=== PATIENT | female | born 2000 | race Caucasian/White ===

== ENCOUNTER 2020-09-18 10:22 | Outpatient (RCR) | payer OTHER, SELFPAY | END 2020-11-24 23:59 | LOC: IMMUN 10:22 | PROVIDERS: PCP Pediatrics; Visit Provider Family Medicine | DX: Z23 Encounter for immunization (principal) | CPT/HCPCS: 0001A; 0002A; 91300 ==

== ENCOUNTER 2021-07-16 09:54 | Emergency (ER) | payer OTHER, SELFPAY ==
[2021-07-16 09:55] VITALS: BP 131/74; PULSE 101; RESP 18; TEMP 36.6; O2SAT 100; BMI 23.0
--- NOTE | 2021-07-16 10:17 | EKG12_ITS ---
Test Reason : CHEST PAIN Blood Pressure : / mmHG Vent. Rate : 086 BPM Atrial Rate : 086 BPM P-R Int : 124 ms QRS Dur : 082 ms QT Int : 362 ms P-R-T Axes : 035 072 029 degrees QTc Int : 433 ms Normal sinus rhythm Low voltage QRS Borderline ECG Confirmed by ZAHRA HAMMER, BUFFY ([id number]), editor index VALENTINE FARAH ([id number]) on 07/19/2021 10:48:12 AM Referred By: TL Confirmed By:BUFFY SWEENEY MD
--- NOTE | 2021-07-16 10:18 | EDS_ITS ---
HPI History of Present Illness Chief Complaint: Chest Pain Informant: patient Narrative Narrative: referred in 26 weeks gestation after speaking with OB office for chest pains and dyspnea starting 4 days ago. Pain in the lower ribs. Pain with deep breath or laying down. Nonproductive cough for the past 2 days. States that subjective fevers chills headache. No vomiting or diarrhea. Home Covid test yesterday was negative. Vaccinated x 2, last doseApril of last year. Had COVID-19 in April 2020. No changes in taste or smell. No recent travel or immobilizations. No history of PE or DVT. Prior Similar Symptoms: No PFSH PFSH Home Medications [id number] [] 1 tab PO DAILY 07/16/21 [History Last Taken Unknown] Allergy/AdvReac Type Severity Reaction Status Date / Time No Known Allergies Allergy Verified 07/16/21 09:57 Social History Smoking Status: Never smoker ROS ROS ED Constitutional Constitutional ED: Reports chills; Denies fever(s) or sweats Eyes Eyes: Denies change in vision ENT ENT ED: Denies dysphagia or sore throat Cardiovascular Cardiovascular: Reports chest pain; Denies leg edema, palpitations or racing heartbeat Respiratory/Chest Respiratory/Chest: Reports cough and dyspnea; Denies dyspnea on exertion Gastrointestinal Gastrointestinal: Denies abdominal pain, diarrhea, nausea or vomiting Genitourinary Genitourinary ED: Denies dysuria, hematuria or urinary frequency Musculoskeletal Musculoskeletal: Denies back pain, extremity pain or neck pain Integumentary Denies rash or wounds Neurologic Neurologic: Reports headache(s); Denies paresthesias or weakness EXAM Physical Exam Const Vital Signs: 07/16/21 09:55 07/16/21 10:50 07/16/21 11:40 Temperature 98 F Temperature Source Temporal Pulse Rate 101 H 114 H Respiratory Rate 18 16 Respiratory Effort Normal Blood Pressure 131/74 H 127/80 H Blood Pressure Mean 93 95 Pulse Ox 100 99 Oxygen Delivery Method Room Air Room Air 07/16/21 12:55 Temperature Temperature Source Pulse Rate 90 Respiratory Rate 17 Respiratory Effort Blood Pressure 107/59 L Blood Pressure Mean Pulse Ox 100 Oxygen Delivery Method Positive well nourished and well developed General Appearance ED: well developed and NAD HEENT Reports moist mucous membranes normocephalic and atraumatic Eyes PERRL, EOMs intact bilaterally and conjunctivae normal General Eye ED: Yes normal appearance of both eyes Neck no lymphadenopathy and supple Neck Narrative: No meningismus General: Negative for tenderness Chest Wall Chest: Negative for tenderness Resp normal respiratory effort and normal air movement Effort and Inspection: symmetric chest movement; Negative for respiratory distress Cardio regular rate, regular rhythm and no murmurs Peripheral Pulses: pulses 2+ throughout GI normal to inspection, nondistended, normoactive bowel sounds and non-tender GI Narrative: Gravid abdomen Palpation: Negative for guarding or rebound tenderness present Back/Spine no CVA tenderness and no thoracic nor lumbar tenderness Extremity normal to inspection General Extremety ED: Negative for edema or tenderness General Extremity: Negative for edema Neuro oriented x3 and no sensory deficits noted Sensorium / Orientation: awake and alert Skin no rashes or lesions noted and no wounds MDM MDM MDM Narrative Medical decision making narrative: Patient vital signs stable, slight tachycardia and being . Reporting pleuritic symptoms. She is low risk Wells criteria. Discussed labs with D-dimer initially. However the D-dimer was elevated at 1.4. Risk and benefits were discussed with CT scan she is currently second trimester . CT scan results were negative. Discussed with patient using Tylenol monitoring symptoms. She had a PCR testing ordered, she was discharged with monitoring for symptoms. 2120: I checked patient's results noting a positive Covid PCR. Called the patient discussed the results with the patient. She will monitor for any worsening shortness of breath. She relates to her OB physician. Return precautions discussed. Patient is being discharged under pandemic conditions under declared global, national and state disaster activation, with limited medical resources. Patient and community understands this. Results discussed in layman's terms to the patient satisfaction. All questions answered in layman's terms. Patient understands importance of follow-up care as directed. Patient has been instructed to return to the ED immediately if new symptoms, problems, or questions occur. We mutually agree with the plan of disposition. The patient understand that they may call or return with any questions or concerns at any time. Lab Data Attestation: I reviewed the patient's lab results. Labs: Laboratory Results - last 24 hr 07/16/21 07/16/21 07/16/21 10:35 10:35 10:35 WBC 8.2 RBC 3.71 L Hgb 12.0 Hct 34.2 L MCV 92.2 MCH 32.3 H MCHC 35.1 RDW Std Deviation 42.4 RDW Coeff of [place] 12.6 Plt Count 189 MPV 9.2 Immature Gran % (Auto) 0.900 Neut % (Auto) 76.5 H Lymph % (Auto) 14.2 L [place] % (Auto) 7.4 Eos % (Auto) 0.5 Baso % (Auto) 0.5 Absolute Neuts (auto) 6.3 Absolute Lymphs (auto) 1.16 Nucleated RBC % 0 PT 12.1 INR 1.0 APTT 25.8 D-Dimer Quant (PE/DVT) 1.41 H* Sodium 139 Potassium 3.3 L Chloride 109 H Carbon Dioxide 25.0 Anion Gap 5 BUN 6 L Creatinine 0.58 Estim Creat Clear Calc 114.81 Est GFR (MDRD) Af Amer 166 Est GFR (MDRD) Non-Af 137 BUN/Creatinine Ratio 10.3 Glucose 75 Calcium 8.3 L COVID-19 (PETER) 07/16/21 10:42 WBC RBC Hgb Hct MCV MCH MCHC RDW Std Deviation RDW Coeff of Soledad Plt Count MPV Immature Gran % (Auto) Neut % (Auto) Lymph % (Auto) [place] % (Auto) Eos % (Auto) Baso % (Auto) Absolute Neuts (auto) Absolute Lymphs (auto) Nucleated RBC % PT INR APTT D-Dimer Quant (PE/DVT) Sodium Potassium Chloride Carbon Dioxide Anion Gap BUN Creatinine Estim Creat Clear Calc Est GFR (MDRD) Af Amer Est GFR (MDRD) Non-Af BUN/Creatinine Ratio Glucose Calcium COVID-19 (PETER) Detected Radiography Diagnostic Testing: Clinical Impression(s) from Imaging Studies Chest CTA 07/16/21 11:14 IMPRESSION: Normal CTA chest examination, without a demonstrated pulmonary embolism or arterial dissection. Electronically Signed: Enrrique Callaway MD at 11:56 EST , Discharge Plan Triage Chief Complaint: Chest Pain ED Provider: Dawit Charles Dx/Rx/DC Orders Clinical Impression: Chest pain, pleuritic, Second trimester , Viral syndrome, COVID-19 virus infection Instructions: ED Chest Pain, Uncertain Cause, ED Pleurisy Prescriptions: No Action 1 mg Tablet 1 tab PO DAILY RF: 0 Primary Care Provider: Care Physician,No Primary Referrals: Care Physician,No Primary [Primary Care Provider] - Activity Restrictions/Additional Instructions: CT scan of the chest negative for PE. Your Covid PCR is pending. Take Tylenol as needed. Follow-up with your OB doctor. Disposition Disposition: Home, Self Care Discharge Date/Time: 07/16/21 12:59
--- NOTE | 2021-07-16 10:32 | NURSING ---
NO OLD EKGS
[2021-07-16 10:52] LABS: Absolute Lymphocyte Count 1.16 X10^3/uL (0.83-4.51); Absolute Neutrophil Count 6.3 X10^3/uL (2.0-7.7); Basophil# 0.04 X10^3/uL; Basophil% 0.5 % (0-1); Eosinophil# 0.04 X10^3/uL; Eosinophils% 0.5 % (0-5); Hematocrit 34.2 % (37-47); Lymphocyte # 1.16 X10^3/ul (0.83-4.51); Lymphocyte % 14.2 % (19-41); Mean Corp Hgb Conc 35.1 g/dL (32-36); Mean Corpuscular Hgb 32.3 pg (27.0-32.0); Mean Corpuscular Volume 92.2 fL (81-99); Mean Platelet Vol. 9.2 fl (6.2-12.0); Monocyte# 0.61 X10^3/uL; Monocyte% 7.4 % (0-10); NRBC Flagged by Analyzer 0 % (0-5); Neutrophil # 6.27 X10^3/uL (2.7-7.7); Neutrophil % 76.5 % (47-70); Platelet Count 189 K/mm3 (150-450); RBC Distribution Width CV 12.6 % (11.6-14.6); RBC Distribution Width SD 42.4 fl (35.1-43.9); Red Blood Count 3.71 M/mm3 (4.2-5.4); White Blood Count 8.2 K/mm3 (4.4-11.0)
[2021-07-16 10:54] LABS: Prothrombin Time (Protime)PT. 12.1 SECONDS (11.7-14.9)
[2021-07-16 10:55] LABS: Partial Thromboplast Time 25.8 Seconds (24.1-36.2)
[2021-07-16 11:00] LABS: Anion Gap 5 (5-15); BUN 6 mg/dL (7-18); BUN/Creat Ratio 10.3 RATIO (10-20); Calcium,Total 8.3 mg/dL (8.5-10.1); Chloride 109 mmol/L (98-107); Creatinine, Serum 0.58 mg/dL (0.55-1.02); EST Glomerular Filtration Rate 137 mL/min (>60); Est Glom Filt Rate - Afr Amer 166 mL/min (>60); Estimated Creatinine Clearance 114.81 ml/min; Glucose 75 mg/dL (74-106); Potassium 3.3 mmol/L (3.5-5.1); Sodium Level 139 mmol/L (136-145)
[2021-07-16 11:07] LABS: D-Dimer Quantitative (DVT/PE) 1.41 FEU/ug/m (0.27-0.49)
--- NOTE | 2021-07-16 11:14 | CT_ITS ---
STUDY: CTA CHEST REASON FOR EXAM: Female, 20 years old. Shortness of breath -- elevated dimer, 26weeks RADIATION DOSAGE (If Supplied By Facility): CTDIvol = ( 4.92 ) mGy, DLP = ( 143.34 ) mGycm TECHNIQUE: The examination was performed with the intravenous administration of IV 100mL Isovue-370. Post-processing of the angiographic images was performed, with multiplanar reformation and 3D reconstruction. Individualized dose optimization techniques were used for this CT. COMPARISON: None. FINDINGS: Normal enhancement of the main pulmonary artery and right and left pulmonary arteries. Normal enhancement of the bilateral peripheral pulmonary arteries. There is no demonstrated pulmonary embolism. Normal thoracic aorta and visualized great vessels. There is no demonstrated aortic dissection. Normal heart and pericardium. Normal mediastinum. Normal hilar regions. Normal visualized trachea and bronchi. The lungs are well expanded. Normal pulmonary parenchyma. Normal pleura. Normal chest wall structures. Normal osseous structures. Normal visualized upper abdomen. CT/CTA Chest W/WO Contrast IMPRESSION: Normal CTA chest examination, without a demonstrated pulmonary embolism or arterial dissection. Electronically Signed: Enrrique Callaway MD at 11:56 EST ,
[2021-07-16 11:40] VITALS: BP 127/80; PULSE 114; RESP 16; O2SAT 99
[2021-07-16 12:55] VITALS: BP 107/59; PULSE 90; RESP 17; O2SAT 100
== END 2021-07-16 12:59 | disposition home or self-care (01) ==
PROVIDERS: Emergency Provider Emergency Medicine; Visit Provider Emergency Medicine
DX: O98.512 Other viral diseases complicating pregnancy, second trimester (principal); U07.1 COVID-19; O99.891 Other specified diseases and conditions complicating pregnancy; R09.1 Pleurisy; Z3A.26 26 weeks gestation of pregnancy
CPT/HCPCS: 71275; 80048; 85025; 85379; 85610; 85730; 87635; 93005; 99284; Q9967; A4216; U0003; U0005

== ENCOUNTER 2021-10-10 13:05 | Inpatient (IN) | payer OTHER, SELFPAY ==
[2021-10-10] VITALS (45 sets, daily range): BP systolic 109–136; BP diastolic 55–79; PULSE 67–99; RESP 18; TEMP 36.9–37.9; O2SAT 92–100; BMI 25.3
[2021-10-10] MEDS: Lactated Ringers 500 ML 999 ML IV ×2 (13:15→14:23)
--- NOTE | 2021-10-10 13:15 | PCM.HP.OB ---
HPI - General General Date of Admission: 10/10/21 HPI Narrative ANDREA GARDNER, is a 20 F at 38.4 weeks gestation who presents to triage with spontaneous contractions and leaking fluid since this morning. Positive movement. Denies any vaginal bleeding. uncomplicated. Patient has a history of HSV and anxiety. Taking Acyclovir PO since 36 weeks gestation. Maternal Data Information SHANE Calculator Estimated Delivery Date Method Current WG Current Estimate 10/20/21 Manual 38w 4d PFSH PFS Medical History (Updated 10/10/21 @ 14:56 by Marcela Tony CNM) Anxiety Genital herpes affecting Home Medications [id number] [] 1 tab PO DAILY 07/16/21 [History Last Taken 10/09/21] acyclovir 10/10/21 [History Last Taken 10/10/21] ferrous sulfate [iron] 325 mg PO DAILY 10/10/21 [History Last Taken Unknown] Allergy/AdvReac Type Severity Reaction Status Date / Time No Known Allergies Allergy Verified 10/10/21 13:18 Social History Smoking Status: Never smoker History Elective abortions Hx Para 0 Spontaneous abortions Hx # Term Pregnancies Ectopic pregnancies Hx # Pregnancies Multiple births # of living children NST FHR Rate Baby A Baseline: 130 Variability:: Moderate Accelerations:: 15 x 15 Decelerations:: None NST Reactive:: Yes FHR Category:: Category I Uterine Activity:: 1-3 minutes-palpate moderate and relaxed in between ROS Eyes Eyes: Denies blurry vision, change in vision or spots in vision ENT HEENT: Denies dizziness or headache(s) Cardiovascular Cardiovascular: Denies abdominal pain, chest pain or dyspnea Respiratory/Chest Respiratory/Chest: Denies cough, dyspnea, shortness of breath at rest or shortness of breath with exertion Gastrointestinal Gastrointestinal: Denies abdominal pain, diarrhea or vomiting Genitourinary Genitourinary: Denies change in urinary stream, difficulty urinating or dysuria Musculoskeletal Musculoskeletal: Reports none Integumentary Integumentary: Denies rash Neurologic Neurologic: Denies dizziness, headache(s), memory loss or weakness Psychiatric Psychiatric: Reports none Vital Signs Vital Signs Vital Signs: 10/10/21 13:44 10/10/21 13:46 10/10/21 13:50 Pulse Rate 99 85 85 Blood Pressure 126/71 H 127/75 H BP Systolic 126 127 BP Diastolic 71 75 Pulse Ox 97 92 10/10/21 13:54 10/10/21 13:55 10/10/21 13:59 Pulse Rate 75 76 80 Blood Pressure 129/75 H 123/64 H BP Systolic 129 123 BP Diastolic 75 64 Pulse Ox 100 100 10/10/21 14:04 10/10/21 14:05 10/10/21 14:09 Pulse Rate 75 74 Blood Pressure 125/66 H BP Systolic 125 BP Diastolic 66 Pulse Ox 100 100 10/10/21 14:11 10/10/21 14:14 10/10/21 14:15 Pulse Rate 69 90 Blood Pressure 133/60 H 109/55 L BP Systolic 133 109 BP Diastolic 60 55 Pulse Ox 100 10/10/21 14:19 10/10/21 14:21 Pulse Rate 78 79 Blood Pressure 115/61 BP Systolic 115 BP Diastolic 61 Pulse Ox 100 Weight Weight: 134 lb Body Mass Index (BMI) 25.3 Physical Exam Const alert, oriented x3 and no apparent distress General Appearance: cooperative Orientation / Consciousness: awake Exam Limitations: no limitations HEENT normocephalic Head and Scalp: normal to inspection Eyes General Eye: normal appearance of both eyes Neck full ROM and no lymphadenopathy Lymph Lymphatic: no lymphadenopathy noted Chest inspection of chest normal Resp normal respiratory effort, normal air movement and clear to auscultation bilaterally Effort and Inspection: able to speak in complete sentences and symmetric chest movement Cardio regular rate and regular rhythm GI normal to inspection, nondistended, normoactive bowel sounds Manual OB Exam: presentation cephalic, dilated 4, effaced 80 and station 0 Amniotic Fluid: clear amniotic fluid Back/Spine normal ROM Extremity full ROM and no calf tenderness Skin no rashes or lesions noted General Skin Exam: no breakdown Neuro oriented x3 and CN's II-XII intact bilaterally Psych mental status grossly normal and thought process normal Labs Labs Labs: Blood Type AB NEGATIVE Antibody Screen NEGATIVE Hct 37.8 % (37-47) Hgb 13.4 g/dL (12.0-15.0) Rubella immune HB neg HC neg HIV- NR GC/CH- neg GBS negative Assessment & Plan (1) Anxiety: COMMENT: Pt has done counseling in the past for anxiety. (2) 38 weeks gestation of : (3) Spontaneous rupture of amniotic membranes: (4) History of herpes genitalis: (5) Spontaneous onset of labor: PLAN: CE- /-1 Positive clear fluid Admit to labor and delivery Routine labs Start IV and run per orders Epidural when indicated Dr. Smith notified of admission and is collaborating physician
[2021-10-10 13:32] LABS: Absolute Lymphocyte Count 2.68 X10^3/uL (0.83-4.51); Absolute Neutrophil Count 5.2 X10^3/uL (2.0-7.7); Basophil# 0.04 X10^3/uL; Basophil% 0.5 % (0-1); Eosinophil# 0.12 X10^3/uL; Eosinophils% 1.4 % (0-5); Hematocrit 37.8 % (37-47); Hemoglobin 13.4 g/dL (12.0-15.0); Lymphocyte # 2.68 X10^3/ul (0.83-4.51); Lymphocyte % 30.8 % (19-41); Mean Corp Hgb Conc 35.4 g/dL (32-36); Mean Corpuscular Hgb 31.8 pg (27.0-32.0); Mean Corpuscular Volume 89.6 fL (81-99); Monocyte# 0.61 X10^3/uL; NRBC Flagged by Analyzer 0 % (0-5); Neutrophil % 59.7 % (47-70); Platelet Count 167 K/mm3 (150-450); RBC Distribution Width CV 12.2 % (11.6-14.6); RBC Distribution Width SD 39.7 fl (35.1-43.9); Red Blood Count 4.22 M/mm3 (4.2-5.4); White Blood Count 8.7 K/mm3 (4.4-11.0)
[2021-10-10] MEDS: Lactated Ringers 1,000 ML 200 ML IV (13:50)
[2021-10-10] MEDS: fentaNYL-bupivacaine (epidural) 100 ML BAG EPIDURAL (14:05)
[2021-10-10] MEDS: Oxytocin 30 units/NS 500 ml 30 UNITS/500 ML IV.SOLN 334 UNITS IV (16:45)
--- NOTE | 2021-10-10 17:11 | EX.PCM.OBRPT ---
Assessment & Plan (1) (spontaneous vaginal delivery): (2) Perineal laceration, second degree, delivered: (3) Rh negative status during : Maternal Data Information SHANE Calculator Estimated Delivery Date Method Current WG Current Estimate 10/20/21 Manual 38w 4d Vaginal Delivery Maternal Presentation Maternal Presentation: Spontaneous Rupture of Membranes Maternal Presentation: Patient is a at 38.4 that presented in spontaneous labor with spontaneous rupture of membranes for clear fluid. Operative Information Date of Procedure: 10/10/21 Pre-Operative Diagnosis: Term gestation, spontaneous labor Post-Operative Diagnosis: Same, live female Surgery / Procedure Performed: Spontaneous Vaginal Delivery Type of Anesthesia: Epidural Drain: [place] to straight drain Estimated Blood Loss: 250 Time of Delivery: 16:42 Findings Description of Procedure: Patient feeling pressure. Complete dilation and +1 station. Provided support during pushing. Minimal maternal effort delivered infant head in SHAR position followed immediately by shoulders and remainder of body. Vigorous female placed on maternal abdomen and attended to by nursing staff. IV Pitocin started for active management of the third stage of labor. 3 vessel cord clamped and cut by FOB after delay. Infant placed skin to skin with patient. Second degree laceration repaired with using 3-0 Vicryl Rapid in usual fashion. Hemostasis obtained. Fundus firm 2 below U. EBL 250 cc. Apgars 9/9. Patient and infant bonding well at this time. Dr. Smith notified of delivery Presentation: Vertex Amniotic Membrane Rupture Type: Spontaneous Time of Membrane Rupture: 1030 Amniotic Fluid Description: Clear Placental Delivery Description: Spontaneous Placenta Disposition: [facility] Cord Vessel Description: 3 Vessels Cord Entanglement: None A Gender: Female (1 minute): 9 (5 minute): 9 Delayed Cord Clamping: Yes Post Vaginal Delivery Medications Given After Delivery: IV Pitocin Episiotomy Description: None Laceration: 2nd degree Complication Complications: None
[2021-10-10] MEDS: Naproxen 500 MG Tablet PO (19:20)
[2021-10-10] MEDS: Acetaminophen 500 MG Tablet 1000 MG PO (20:52)
[2021-10-11] VITALS (9 sets, daily range): BP systolic 113–133; BP diastolic 58–87; PULSE 65–88; RESP 16–18; TEMP 36.6–37.6
[2021-10-11] MEDS: Naproxen 500 MG Tablet PO (05:00)
[2021-10-11] MEDS: Senna/Docusate Sodium 1 Tablet PO ×2 (05:00→12:45)
[2021-10-11] MEDS: Acetaminophen 500 MG Tablet 1000 MG PO (08:19)
--- NOTE | 2021-10-11 08:53 | PN.OBGYN_ITS ---
Subjective Subjective Doing well per patient and nursing staff. Ambulating and taking PO without difficulty. Voiding and passing flatus. Pain controlled. , services for assistance. Denies headache, visual changes, chest pain, shortness of breath, leg pain or increased bleeding. Lochia normal. Objective Data Objective Data Vital Signs: Vital Signs Temp Pulse Resp BP Pulse Ox 99.7 F H 73 16 125/70 H 99 10/11/21 08:10 10/11/21 08:10 10/11/21 08:10 10/11/21 08:10 10/10/21 15:55 Oxygen Delivery Method Room Air Weight: 134 lb Body Mass Index (BMI) 25.3 Intake & Output: Intake and Output for Last 24 Hours 10/09/21 10/10/21 10/11/21 23:59 23:59 23:59 Intake Total 3099.84 / 3099.84 Output Total 500 / 500 800 / 800 Balance 2599.84 / 2599.84 -800 / -800 Lab / Micro Data Result Diagrams: 10/10/21 13:15 Labs: Laboratory Results - last 24 hr 10/10/21 13:15: WBC 8.7, RBC 4.22, Hgb 13.4, Hct 37.8, MCV 89.6, MCH 31.8, MCHC 35.4, RDW Std Deviation 39.7, RDW Coeff of Soledad 12.2, Plt Count 167, MPV 11.0, Immature Gran % (Auto) 0.600, Neut % (Auto) 59.7, Lymph % (Auto) 30.8, [place] % (Auto) 7.0, Eos % (Auto) 1.4, Baso % (Auto) 0.5, Absolute Neuts (auto) 5.2, Absolute Lymphs (auto) 2.68, Nucleated RBC % 0 10/10/21 13:15: Blood Type AB NEGATIVE, Antibody Screen NEGATIVE ROS Constitutional Constitutional: Reports systems reviewed and no addt'l complaints, except as documented; Denies headache(s) Eyes Eyes: Denies acute decrease in peripheral vision, blurry vision or change in vision ENT HEENT: Reports systems reviewed and no addt'l complaints, except as documented Cardiovascular Cardiovascular: Denies chest pain or dizziness Respiratory/Chest Respiratory/Chest: Denies cough, dyspnea, dyspnea on exertion, shortness of breath at rest or shortness of breath with exertion Gastrointestinal Gastrointestinal: Denies abdominal pain, diarrhea, nausea or vomiting Genitourinary Genitourinary: Denies abdominal discomfort Musculoskeletal Musculoskeletal: Denies limited range of motion Integumentary Integumentary: Reports systems reviewed and no addt'l complaints, except as documented Neurologic Neurologic: Reports systems reviewed and no addt'l complaints, except as documented Psychiatric Psychiatric: Reports systems reviewed and no addt'l complaints, except as documented Endocrine Endocrinology: Reports systems reviewed and no addt'l complaints, except as documented Hematologic/Lymphatic Hematologic/Lymphatic: Reports systems reviewed and no addt'l complaints, except as documented Allergic/Immunologic Allergic/Immunologic: Reports systems reviewed and no addt'l complaints, except as documented Physical Exam Const alert and oriented x3 General Appearance: cooperative Orientation / Consciousness: awake, oriented to person, oriented to place and oriented to time Exam Limitations: no limitations HEENT normocephalic Head and Scalp: normal to inspection, normocephalic and atraumatic Face and Sinus: normal facial exam Eyes General Eye: normal appearance of both eyes Neck full ROM Chest Chest: symmetrical chest wall rise Resp normal respiratory effort and normal air movement Auscultation: clear to auscultation bilaterally Cardio regular rate, regular rhythm, S1 normal heart sound, S2 normal heart sound, no murmurs, no rub, no gallops and no clicks GI normal to inspection, nondistended, normoactive bowel sounds and non-tender appearance of the vagina normal Bladder / Kidney Exam: no CVA tenderness Back/Spine normal ROM Extremity normal to inspection and full ROM Skin no rashes or lesions noted Neuro oriented x3, CN's II-XII intact bilaterally and moves all extremities Sensorium / Orientation: awake, alert and oriented to person Motor Exam: clonus absent Deep Tendon Reflexes: Rt Patellar (L4): 2+ and Lt Patellar (L4): 2+ Assessment & Plan (1) Rh negative status during : (2) Perineal laceration, second degree, delivered: (3) (spontaneous vaginal delivery): PLAN: 1) Routine PP care 2) services 3) Naproxen for pain 4) follow up at 2 weeks and 6 week PP 5) D/C home today
--- NOTE | 2021-10-11 08:53 | DS.PCM_ITS ---
Providers Date of Admission: 10/10/21 Primary Care Physician: Paula Primary Care Phys Reason For Visit: VAG DELIVERY Diagnosis Discharge Diagnosis (1) (spontaneous vaginal delivery): Status: Acute Code(s): O80 - Encounter for full-term uncomplicated delivery (2) Perineal laceration, second degree, delivered: Status: Acute Code(s): O70.1 - Second degree perineal laceration during delivery (3) Rh negative status during : Status: Acute Code(s): O26.899 - Other specified related conditions, unspecified trimester; Z67.91 - Unspecified blood type, Rh negative Medications at Discharge Home Medications [id number] 1 tab PO DAILY 07/16/21 acyclovir 10/10/21 acetaminophen 1,000 mg PO Q6H PRN PRN #0 tab 10/11/21 naproxen 500 mg PO Q8H PRN PRN #30 tab 10/11/21 Weight / BMI Weight Weight: 134 lb Body Mass Index (BMI) 25.3 ABG / Lab / Microbiology Data Result Diagrams: 10/10/21 13:15 Laboratory: Laboratory Results - last 24 hr 10/10/21 13:15: WBC 8.7, RBC 4.22, Hgb 13.4, Hct 37.8, MCV 89.6, MCH 31.8, MCHC 35.4, RDW Std Deviation 39.7, RDW Coeff of [place] 12.2, Plt Count 167, MPV 11.0, Immature Gran % (Auto) 0.600, Neut % (Auto) 59.7, Lymph % (Auto) 30.8, [place] % (Auto) 7.0, Eos % (Auto) 1.4, Baso % (Auto) 0.5, Absolute Neuts (auto) 5.2, Absolute Lymphs (auto) 2.68, Nucleated RBC % 0 10/10/21 13:15: Blood Type AB NEGATIVE, Antibody Screen NEGATIVE Meaningful Use Info Meaningful Use Diagnoses (Choose all that apply): None applicable Discharge Plan Admission Admit Date/Time: 10/10/21 13:05 Primary Reason for Your Visit: Attending Provider: Marcela Tony Primary Care Provider: Care Physician,No Primary Instructions Patient Instructions: Discharge Orders/Prescriptions Prescriptions: New acetaminophen 500 mg Tablet 1,000 mg PO Q6H PRN PRN (Reason: Pain 1-10 Or Fever) Qty: 0 RF: 0 naproxen 500 mg Tablet 500 mg PO Q8H PRN PRN (Reason: Pain Score 1-3) Qty: 30 RF: 0 Continued [id number] 1 mg Tablet 1 tab PO DAILY RF: 0 acyclovir 400 mg tablet RF: 0 Discontinued ferrous sulfate [iron] 325 mg (65 mg iron) Tablet 325 mg PO DAILY RF: 0 Referrals / Follow Up: Marcela Tony CNM [Certified Nurse Street Flusher Driver] - (Follow up with virtual visit in 2 weeks and 6 weeks PP) Care Physician,No Primary [Primary Care Provider] - Disposition Disposition (needs filled in before D/C Order can be placed): Home, Self Care
== END 2021-10-11 19:00 | disposition home or self-care (01) | DRG 806 ==
LOC: WPOUT 13:09 → WP 13:09
PROVIDERS: Admitting Provider Advanced Practice Midwife; Visit Provider Advanced Practice Midwife
DX: O42.02 Full-term premature rupture of membranes, onset of labor within 24 hours of rupture (principal); Z37.0 Single live birth; O98.32 Other infections with a predominantly sexual mode of transmission complicating childbirth; F41.9 Anxiety disorder, unspecified; A60.00 Herpesviral infection of urogenital system, unspecified; O26.893 Other specified pregnancy related conditions, third trimester; Z67.31 Type AB blood, Rh negative; O99.344 Other mental disorders complicating childbirth; Z3A.38 38 weeks gestation of pregnancy; O70.1 Second degree perineal laceration during delivery
CPT/HCPCS: 59050; 85025; 86850; 86900; 86901; 99218; 99406; J7120; G0378

== ENCOUNTER → 2022-04-13 | Outpatient (CLI) | payer OTHER, SELFPAY ==
[2022-04-13 12:00] LABS: Absolute Lymphocyte Count 1.55 X10^3/uL (0.83-4.51); Absolute Neutrophil Count 3.2 X10^3/uL (2.0-7.7); Basophil# 0.02 X10^3/uL; Basophil% 0.4 % (0-1); Eosinophil# 0.07 X10^3/uL; Eosinophils% 1.3 % (0-5); Hemoglobin 14.5 g/dL (12.0-15.0); Lymphocyte # 1.55 X10^3/ul (0.83-4.51); Lymphocyte % 29.4 % (19-41); Mean Corp Hgb Conc 33.7 g/dL (32-36); Mean Corpuscular Volume 88.8 fL (81-99); Mean Platelet Vol. 9.6 fl (6.2-12.0); Monocyte# 0.41 X10^3/uL; Monocyte% 7.8 % (0-10); NRBC Flagged by Analyzer 0 % (0-5); Neutrophil # 3.21 X10^3/uL (2.7-7.7); Neutrophil % 60.7 % (47-70); Platelet Count 251 K/mm3 (150-450); RBC Distribution Width CV 11.6 % (11.6-14.6); RBC Distribution Width SD 37.1 fl (35.1-43.9); Red Blood Count 4.84 M/mm3 (4.2-5.4); White Blood Count 5.3 K/mm3 (4.4-11.0)
[2022-04-13 12:26] LABS: AST(SGOT) 19 U/L (15-37); Alanine Aminotransfer ALT/SGPT 19 U/L (13-56); Albumin, Serum 3.5 g/dL (3.2-5.0); Alkaline Phosphatase 53 U/L (45-117); Anion Gap 6 (5-15); BUN 11 mg/dL (7-18); BUN/Creat Ratio 14.2 RATIO (10-20); Bilirubin, Direct 0.09 mg/dL (0.00-0.30); Calcium,Total 8.5 mg/dL (8.5-10.1); Chloride 103 mmol/L (98-107); Cholesterol 155 mg/dL (200); Creatinine, Serum 0.78 mg/dL (0.55-1.02); EST Glomerular Filtration Rate 98 mL/min (>60); Est Glom Filt Rate - Afr Amer 118 mL/min (>60); Globulin 3.4 g/dL (2.2-4.2); Glucose 103 mg/dL (74-106); High Density Lipoprotein 49 mg/dL; Potassium 3.9 mmol/L (3.5-5.1); Protein, Total 6.9 g/dL (6.4-8.2); Sodium Level 137 mmol/L (136-145); Thyroid Stim Hormone (TSH) 0.73 uIU/mL (0.358-3.74); Triglycerides 153 mg/dL; Very Low Density Lipoprotein 31 mg/dL (5-40)
== END | disposition home or self-care (01) ==
LOC: MTLAB 10:45
PROVIDERS: PCP Family Medicine; Referring Provider Dermatology; Visit Provider Dermatology
DX: L70.0 Acne vulgaris (principal); Z79.899 Other long term (current) drug therapy
CPT/HCPCS: 80053; 80061; 82248; 84443; 85025

== ENCOUNTER → 2022-05-18 | Outpatient (CLI) | payer OTHER, SELFPAY ==
[2022-05-20 20:07] LABS: QNTFERON TB Mitogen Value > 10.00 IU/mL (.); QNTFERON TB Nil Value 0.07 IU/mL (.); QNTFERON TB1+ Ag Value 0.07 IU/mL (.); QNTFERON TB2+ Ag Value 0.06 IU/mL (.)
[2022-05-20 20:32] LABS: QNTIFERON TB Positive Criteria Negative (Negative)
== END | disposition home or self-care (01) ==
LOC: MFPLAB 11:21
PROVIDERS: PCP Family Medicine; Visit Provider Family Medicine
DX: Z11.1 Encounter for screening for respiratory tuberculosis (principal)
CPT/HCPCS: 36415; 86480

== ENCOUNTER → 2022-06-24 | Outpatient (CLI) | payer OTHER, SELFPAY ==
[2022-06-24 12:25] LABS: Absolute Lymphocyte Count 2.05 X10^3/uL (0.83-4.51); Basophil# 0.02 X10^3/uL; Basophil% 0.5 % (0-1); Eosinophil# 0.08 X10^3/uL; Eosinophils% 1.8 % (0-5); Hematocrit 43.6 % (37-47); Hemoglobin 14.4 g/dL (12.0-15.0); Lymphocyte # 2.05 X10^3/ul (0.83-4.51); Lymphocyte % 46.3 % (19-41); Mean Corpuscular Hgb 29.9 pg (27.0-32.0); Mean Corpuscular Volume 90.5 fL (81-99); Mean Platelet Vol. 10.1 fl (6.2-12.0); Monocyte# 0.31 X10^3/uL; NRBC Flagged by Analyzer 0 % (0-5); Neutrophil # 1.96 X10^3/uL (2.7-7.7); Neutrophil % 44.2 % (47-70); Platelet Count 269 K/mm3 (150-450); RBC Distribution Width CV 11.5 % (11.6-14.6); RBC Distribution Width SD 37.9 fl (35.1-43.9); Red Blood Count 4.82 M/mm3 (4.2-5.4); White Blood Count 4.4 K/mm3 (4.4-11.0)
[2022-06-24 12:48] LABS: AST(SGOT) 21 U/L (15-37); Alanine Aminotransfer ALT/SGPT 18 U/L (13-56); Cholesterol 173 mg/dL (200); High Density Lipoprotein 41 mg/dL; Triglycerides 111 mg/dL; Very Low Density Lipoprotein 22 mg/dL (5-40)
== END | disposition home or self-care (01) ==
LOC: MTLAB 09:14
PROVIDERS: PCP Family Medicine; Referring Provider Dermatology; Visit Provider Dermatology
DX: L21.8 Other seborrheic dermatitis (principal); K70.0 Alcoholic fatty liver; Z79.899 Other long term (current) drug therapy
CPT/HCPCS: 36415; 80061; 84450; 84460; 85025

== ENCOUNTER 2022-09-24 19:49 | Observation (INO) | payer OTHER, BC, SELFPAY ==
[2022-09-24 19:50] VITALS: BP 144/103; PULSE 114; RESP 18; TEMP 37.1; O2SAT 99; BMI 20.8
[2022-09-24 20:08] VITALS: BP 90/51; PULSE 92; RESP 20; O2SAT 98
[2022-09-24 20:14] VITALS: BP 117/76; PULSE 91; RESP 18; O2SAT 98
[2022-09-24 20:30] LABS: Absolute Lymphocyte Count 3.06 X10^3/uL (0.83-4.51); Absolute Neutrophil Count 2.2 X10^3/uL (2.0-7.7); Basophil# 0.03 X10^3/uL; Basophil% 0.5 % (0-1); Eosinophil# 0.05 X10^3/uL; Eosinophils% 0.9 % (0-5); Hemoglobin 15.5 g/dL (12.0-15.0); Lymphocyte # 3.06 X10^3/ul (0.83-4.51); Lymphocyte % 52.7 % (19-41); Mean Corp Hgb Conc 34.4 g/dL (32-36); Mean Corpuscular Hgb 30.4 pg (27.0-32.0); Mean Corpuscular Volume 88.2 fL (81-99); Mean Platelet Vol. 9.5 fl (6.2-12.0); Monocyte# 0.47 X10^3/uL; Monocyte% 8.1 % (0-10); NRBC Flagged by Analyzer 0 % (0-5); Neutrophil # 2.19 X10^3/uL (2.7-7.7); Neutrophil % 37.6 % (47-70); Platelet Count 278 K/mm3 (150-450); RBC Distribution Width CV 11.8 % (11.6-14.6); RBC Distribution Width SD 38.2 fl (35.1-43.9); White Blood Count 5.8 K/mm3 (4.4-11.0)
[2022-09-24 20:48] LABS: Internal QC Validated? YES +Cl - CLEAR BKGD; Pregnancy, Serum, hCG Quali. NEGATIVE Negative
[2022-09-24 20:50] LABS: Anion Gap 7 (5-15); BUN 11 mg/dL (7-18); Calcium,Total 9.6 mg/dL (8.5-10.1); Chloride 104 mmol/L (98-107); Creatinine, Serum 0.84 mg/dL (0.55-1.02); EST Glomerular Filtration Rate 88 mL/min (>60); Est Glom Filt Rate - Afr Amer 107 mL/min (>60); Glucose 103 mg/dL (74-106); Potassium 4.1 mmol/L (3.5-5.1); Sodium Level 137 mmol/L (136-145)
[2022-09-24 21:00] VITALS: BP 128/90; PULSE 98; RESP 18; O2SAT 97
[2022-09-24 21:24] LABS: Amphetamine Urine VISTA NEGATIVE (<1000 ng/mL); Barbiturate Urine VISTA NEGATIVE (< 200 ng/mL); Benzodiazepine Urine VISTA NEGATIVE (< 200 ng/mL); Cocaine Urine VISTA NEGATIVE (< 300 ng/mL); Ecstacy Urine VISTA NEGATIVE (< 500 ng/mL); Methadone Urine VISTA NEGATIVE (< 300 ng/mL); PCP Urine VISTA NEGATIVE (< 25 ng/mL); THC Urine VISTA NEGATIVE (< 50 ng/mL); Vista UDS pH Range 7
[2022-09-24 22:28] LABS: Acetaminophen (Tylenol) Level 107.4 ug/mL (10.0-30.0); Alcohol, Blood (Medical)-Serum < 3.0 mg/dL; Salicylate < 1.7 mg/dL (2.8-20.0)
[2022-09-24 23:15] VITALS: BP 105/70; PULSE 87; RESP 18; O2SAT 98
[2022-09-24 23:45] LABS: Acetaminophen (Tylenol) Level 258.6 ug/mL (10.0-30.0)
--- NOTE | 2022-09-24 23:52 | EX.ED.VIS.PS ---
HPI HPI - Psych History of Present Illness Chief Complaint: Suicidal Detail of Chief Complaint: Ingestion Informant: patient Narrative Narrative: Patient presents after taking approximate 20 tabs of Tylenol, 500 mg each at 7 PM this evening. She is tearful at this time. When I asked her why she took the medication she states I do not know. When I specifically asked her if she was trying to hurt herself she states yes. She states she has had thoughts of hurting herself in the past but has never attempted. PFSH PFSH Medical History Anxiety Genital herpes affecting Home Medications [id number] 1 mg tablet 1 tab PO DAILY 07/16/21 [History Last Taken 10/09/21] acyclovir 400 mg tablet genital herpes 10/10/21 [History Last Taken 10/10/21] acetaminophen 500 mg tablet 1,000 mg PO Q6H PRN PRN Pain 1-10 Or Fever #0 tabs 10/11/21 [Rx Last Taken Unknown] naproxen 500 mg tablet 500 mg PO Q8H PRN PRN Pain Score 1-3 #30 tabs 10/11/21 [Rx Last Taken Unknown] Allergy/AdvReac Type Severity Reaction Status Date / Time No Known Allergies Allergy Verified 09/24/22 19:50 Social History Smoking Status: Current every day smoker tobacco type: e-cigarettes ROS ROS ED Constitutional Constitutional ED: Denies chills or fever(s) Eyes Eyes: Denies change in vision or discharge from eye(s) ENT ENT ED: Denies discharge from eye(s), rhinorrhea or sore throat Cardiovascular Cardiovascular: Denies chest pain or palpitations Respiratory/Chest Respiratory/Chest: Denies cough or dyspnea Gastrointestinal Gastrointestinal: Denies abdominal pain, nausea or vomiting Genitourinary Genitourinary ED: Denies dysuria Musculoskeletal Musculoskeletal: Denies back pain or extremity pain Integumentary Denies Abrasions or rash Neurologic Neurologic: Denies headache(s) or weakness Psychiatric Psychiatric: Reports anxiety, depression and suicidal ideation Allergic/Immunologic Allergic/Immunologic ED: Denies lip swelling or urticaria EXAM Physical Exam Const Vital Signs: 09/24/22 19:50 09/24/22 20:08 09/24/22 20:14 Temperature 98.7 F Temperature Source Temporal Pulse Rate 114 H 92 91 Respiratory Rate 18 20 H 18 Blood Pressure 144/103 H 90/51 L 117/76 Blood Pressure Mean 116 64 89 Pulse Ox 99 98 98 Oxygen Delivery Method Room Air Room Air Room Air 09/24/22 21:00 09/24/22 23:15 Temperature Temperature Source Pulse Rate 98 87 Respiratory Rate 18 18 Blood Pressure 128/90 H 105/70 Blood Pressure Mean 102 81 Pulse Ox 97 98 Oxygen Delivery Method Room Air Room Air Positive well nourished and well developed General Appearance ED: well developed HEENT Reports normocephalic and head/scalp atraumatic Eyes PERRL and EOMs intact bilaterally Neck supple Chest Wall inspection of chest normal and palpation of chest normal Resp normal respiratory effort and clear to auscultation bilaterally Cardio regular rate and regular rhythm GI non-tender Auscultation: hypoactive bowel sounds Palpation: soft Extremity normal to inspection Neuro oriented x3 and no sensory deficits noted Sensorium / Orientation: alert Motor Exam: strength 5/5 throughout Psych mental status grossly normal Appearance: well kempt Mood & Affect: sad and tearful Skin no rashes or lesions noted MDM MDM MDM Narrative Medical decision making narrative: Labs for psychiatric clearance undertaken. Patient was seen 2 hours after ingestion so therefore charcoal was not initiated. A 4-hour Tylenol level was ordered. Lab Data Labs: Laboratory Results - last 24 hr 09/24/22 09/24/22 09/24/22 20:12 20:12 20:12 WBC 5.8 RBC 5.10 Hgb 15.5 H Hct 45.0 MCV 88.2 MCH 30.4 MCHC 34.4 RDW Std Deviation 38.2 RDW Coeff of Soledad 11.8 Plt Count 278 MPV 9.5 Immature Gran % (Auto) 0.200 Neut % (Auto) 37.6 L Lymph % (Auto) 52.7 H Walker % (Auto) 8.1 Eos % (Auto) 0.9 Baso % (Auto) 0.5 Absolute Neuts (auto) 2.2 Absolute Lymphs (auto) 3.06 Nucleated RBC % 0 Sodium 137 Potassium 4.1 Chloride 104 Carbon Dioxide 26.0 Anion Gap 7 BUN 11 Creatinine 0.84 Estim Creat Clear Calc 78.60 Est GFR (MDRD) Af Amer 107 Est GFR (MDRD) Non-Af 88 BUN/Creatinine Ratio 13.0 Glucose 103 Calcium 9.6 Serum , Qual Salicylates < 1.7 L Urine Opiates Screen Urine Methadone Screen Acetaminophen 107.4 H* Ur Barbiturates Screen Ur Phencyclidine Scrn Ur Amphetamines Screen MDMA (Ecstasy) Screen U Benzodiazepines Scrn Urine Cocaine Screen U Cannabinoids Screen Ur Drug Screen Comment Ethyl Alcohol < 3.0 09/24/22 09/24/22 09/24/22 20:12 20:50 23:06 WBC RBC Hgb Hct MCV MCH MCHC RDW Std Deviation RDW Coeff of Soledad Plt Count MPV Immature Gran % (Auto) Neut % (Auto) Lymph % (Auto) [place] % (Auto) Eos % (Auto) Baso % (Auto) Absolute Neuts (auto) Absolute Lymphs (auto) Nucleated RBC % Sodium Potassium Chloride Carbon Dioxide Anion Gap BUN Creatinine Estim Creat Clear Calc Est GFR (MDRD) Af Amer Est GFR (MDRD) Non-Af BUN/Creatinine Ratio Glucose Calcium Serum , Qual NEGATIVE Salicylates Urine Opiates Screen NEGATIVE Urine Methadone Screen NEGATIVE Acetaminophen 258.6 H* Ur Barbiturates Screen NEGATIVE Ur Phencyclidine Scrn NEGATIVE Ur Amphetamines Screen NEGATIVE MDMA (Ecstasy) Screen NEGATIVE U Benzodiazepines Scrn NEGATIVE Urine Cocaine Screen NEGATIVE U Cannabinoids Screen NEGATIVE Ur Drug Screen Comment Ethyl Alcohol Treatment and Re-Evaluation Narrative: CBC reveals normal white count. Hemoglobin concentrated at 15.5. Chemistry studies are unremarkable. Salicylate level is less than 1.7. EtOH is less than 3. Initial Tylenol level initiated by nursing protocol was 107, however this is not a 4-hour draw. The 4-hour Tylenol level returns at 258. Her test is negative. Her urine tox screen is negative. At this time patient does require acetylcysteine treatment and this will be initiated. I will speak with hospitalist regarding admission for further treatment. Discharge Plan Triage Chief Complaint: Suicidal ED Provider: Indira Kraus Dx/Rx/DC Orders Clinical Impression: Tylenol overdose, Suicide attempt Prescriptions: No Action [id number] 1 mg Tablet 1 tab PO DAILY acyclovir 400 mg tablet Label Comments: take 1 tablet by mouth three times a day acetaminophen 500 mg Tablet 1,000 mg PO Q6H PRN PRN (Reason: Pain 1-10 Or Fever) Qty: 0 0RF naproxen 500 mg Tablet 500 mg PO Q8H PRN PRN (Reason: Pain Score 1-3) Qty: 30 0RF Primary Care Provider: Lisa Sin Referrals: Lisa Sin, [Primary Care Provider] - Disposition Disposition: Acute Care Hospital [facility], [place]
[2022-09-25] VITALS (29 sets, daily range): BP systolic 104–153; BP diastolic 48–128; PULSE 66–114; RESP 13–22; TEMP 36.2–37.3; O2SAT 98–100; BMI 20.4
[2022-09-25 00:22] LABS: AST(SGOT) 29 U/L (15-37); Alanine Aminotransfer ALT/SGPT 24 U/L (13-56); Albumin, Serum 4.2 g/dL (3.2-5.0); Alkaline Phosphatase 69 U/L (45-117); Bilirubin, Direct 0.09 mg/dL (0.00-0.30); Globulin 4.4 g/dL (2.2-4.2); Protein, Total 8.6 g/dL (6.4-8.2)
--- NOTE | 2022-09-25 00:26 | PCM.HP.STD ---
HPI - General General Date of Admission: 09/25/22 Date of Service: 09/25/22 Chief Complaint: Suicidal HPI Narrative ANDREA GARDNER, is a 21 F who presented to the emergency department after a suicide attempt. Patient states she took approximately 20 tablets of 500 mg Tylenol tablets at about 7 PM this evening. She states she has had some issues with depression ever since she had her baby about 1 year ago. She states she is just not been herself since that time. She feels safe at home and feels supportive. She has had thoughts of hurting herself in the past but never has had any attempts. When I did ask her if she was trying to hurt herself she stated yes. She states in general she has been feeling very overwhelmed. Vital signs on presentation show a temperature of 98.7, initial heart rate was 114 however subsequent heart rates were between 80 and 90. Blood pressure was 144/103, respiratory rate 18 and oxygen saturations were 99% on room air. CBC is unremarkable other than a mildly elevated hemoglobin at 15.5. Chemistry panel is unremarkable. Liver function is normal. Coags are pending. test was negative. Initial Tylenol level about 1 hour after ingestion was 107.4 and Tylenol level at 5 hours after ingestion was 258.6 putting her on the nomogram at risk for hepatic toxicity. In the emergency department she was initiated on N-acetylcysteine and request for admission was made. We signed a pink slip prior to admission. [facility] Medical History Anxiety Genital herpes affecting Home Medications drospirenone 3 mg-ethinyl estradiol 0.02 mg tablet 1 tab PO DAILY prevention 09/25/22 [History Last Taken Unknown] Allergy/AdvReac Type Severity Reaction Status Date / Time No Known Allergies Allergy Verified 09/24/22 19:50 no significant family history no surgical history Social History (Updated 09/25/22 @ 00:[address] Georgia Monique DO) Smoking Status: Current every day smoker tobacco type: e-cigarettes alcohol intake: never substance use type: does not use ROS Constitutional Constitutional: Reports anorexia; Denies change in weight, chills, fatigue, fever(s), malaise, night sweats, weakness or other Eyes Eyes: Denies blurry vision, change in eye color, change in vision, discharge from eye(s), double vision, erythema, eye pain, loss of vision or other ENT HEENT: Denies abnormal hearing, dysphagia, ear pain, epistaxis, headache(s), hearing loss, nasal congestion, nasal discharge, post nasal drip, sinus pressure, sore throat or other Cardiovascular Cardiovascular: Denies chest pain, claudication, dyspnea on exertion, edema, lightheadedness, orthopnea, palpitations, paroxysmal nocturnal dyspnea, rapid heart rate, syncope or other Respiratory/Chest Respiratory/Chest: Denies cough, dyspnea, excessive phlegm production, hemoptysis, productive cough, shortness of breath at rest, shortness of breath with exertion, wheezing or other Gastrointestinal Gastrointestinal: Reports nausea and vomiting; Denies abdominal pain, coffee ground emesis, constipation, diarrhea, dyspepsia, hematemesis, hematochezia, loose stools, melena or other Genitourinary Genitourinary: Denies burning urination, difficulty urinating, dysuria, hematuria, nocturia, urinary frequency, urinary hesitancy, urinary incontinence, urinary urgency or other Musculoskeletal Musculoskeletal: Denies arthralgias, back pain, joint pain, joint stiffness, joint swelling, myalgias, neck pain or other Neurologic Neurologic: Denies abnormal gait, abnormal speech, confusion, disequilibrium, dizziness, focal weakness, headache(s), numbness, paresthesias, seizure-like activity, seizures, syncope, tingling, tremor(s) or other Psychiatric Psychiatric: Reports anxiety, depression and suicidal ideation; Denies homicidal ideation Endocrine Endocrinology: Denies change in body appearance, cold intolerance, excessive sweating, heat intolerance, polydipsia, polyuria or other Hematologic/Lymphatic Hematologic/Lymphatic: Denies anemia, easy bleeding, easy bruising, lymphadenopathy or other Allergic/Immunologic Allergic/Immunologic: Denies rhinitis, hives, eczemia, asthma or other Vital Signs Vital Signs Vital Signs: 09/24/22 19:50 09/24/22 20:08 09/24/22 20:14 Temperature 98.7 F Temperature Source Temporal Pulse Rate 114 H 92 91 Respiratory Rate 18 20 H 18 Blood Pressure 144/103 H 90/51 L 117/76 Blood Pressure Mean 116 64 89 Pulse Ox 99 98 98 Oxygen Delivery Method Room Air Room Air Room Air 09/24/22 21:00 09/24/22 23:15 Temperature Temperature Source Pulse Rate 98 87 Respiratory Rate 18 18 Blood Pressure 128/90 H 105/70 Blood Pressure Mean 102 81 Pulse Ox 97 98 Oxygen Delivery Method Room Air Room Air Weight Weight: 50.077 kg Body Mass Index (BMI) 20.8 Physical Exam Const alert, oriented x3, average body habitus and well nourished Constitutional Narrative: Young white female lying in bed, tearful, sitter at bedside, patient appears comfortable and nontoxic at this time General Appearance: cooperative HEENT normocephalic, head/scalp atraumatic, hearing grossly normal bilaterally, moist oral mucous membranes, oropharynx normal and dentition normal HEENT Narrative: Mallampati 2, no thrush Eyes PERRL, EOMs intact bilaterally and conjunctivae normal Eyes Narrative: No scleral icterus Neck no lymphadenopathy, supple, no JVD and no carotid bruits Neck Narrative: Trachea midline, no thyroid enlargement Resp normal respiratory effort, no retractions, no use of accessory muscles and clear to auscultation bilaterally Auscultation: Negative for rales, rhonchi or wheezes Cardio regular rhythm, S1 normal heart sound, S2 normal heart sound, no murmurs, no rub, no gallops and no clicks Cardio Narrative: Slightly tachycardic GI normal to inspection, nondistended, normoactive bowel sounds, soft to palpation and non-tender Extremity no clubbing, cyanosis or edema Extremity Narrative: 2+ pedal pulses Skin No no rashes or lesions noted, No no wounds, No skin turgor normal, No no jaundice, No no petechiae and No no mottling Skin Narrative: Seems to have some ecchymotic areas on right-sided face covered by make-up Neuro oriented x3, CN's II-XII intact bilaterally, moves all extremities and no focal motor deficits Speech: speech normal Psych Psych Narrative: Affect is flat, patient is tearful, eye contact is poor Results Lab / Micro Data Attestation: I reviewed the patient's lab results. Result Diagrams: 09/24/22 20:12 09/24/22 20:12 Labs: Laboratory Results - last 24 hr 09/24/22 20:12: WBC 5.8, RBC 5.10, Hgb 15.5 H, Hct 45.0, MCV 88.2, MCH 30.4, MCHC 34.4, RDW Std Deviation 38.2, RDW Coeff of Soledad 11.8, Plt Count 278, MPV 9.5, Immature Gran % (Auto) 0.200, Neut % (Auto) 37.6 L, Lymph % (Auto) 52.7 H, [place] % (Auto) 8.1, Eos % (Auto) 0.9, Baso % (Auto) 0.5, Absolute Neuts (auto) 2.2, Absolute Lymphs (auto) 3.06, Nucleated RBC % 0 09/24/22 20:12: Sodium 137, Potassium 4.1, Chloride 104, Carbon Dioxide 26.0, Anion Gap 7, BUN 11, Creatinine 0.84, Estim Creat Clear Calc 78.60, Est GFR (MDRD) Af Amer 107, Est GFR (MDRD) Non-Af 88, BUN/Creatinine Ratio 13.0, Glucose 103, Calcium 9.6 09/24/22 20:12: Salicylates < 1.7 L, Acetaminophen 107.4 H*, Ethyl Alcohol < 3.0 09/24/22 20:12: Serum , Qual NEGATIVE 09/24/22 20:12: Total Bilirubin 0.30, Direct Bilirubin 0.09, AST 29, ALT 24, Alkaline Phosphatase 69, Total Protein 8.6 H, Albumin 4.2, Globulin 4.4 H 09/24/22 20:50: Urine Opiates Screen NEGATIVE, Urine Methadone Screen NEGATIVE, Ur Barbiturates Screen NEGATIVE, Ur Phencyclidine Scrn NEGATIVE, Ur Amphetamines Screen NEGATIVE, MDMA (Ecstasy) Screen NEGATIVE, U Benzodiazepines Scrn NEGATIVE, Urine Cocaine Screen NEGATIVE, U Cannabinoids Screen NEGATIVE, Ur Drug Screen Comment 09/24/22 23:06: Acetaminophen 258.6 H* Micro: Microbiology 09/24/22 20:15 Nasal Secretion SARS-CoV-2 Antigen (Rapid) - Final Assessment & Plan Assessment/Plan (1) Tylenol overdose: (2) Suicide attempt: PLAN: Plan Intentional Tylenol overdose -This was a suicide attempt and the patient was pink slipped -N-acetylcysteine--> initiated in the emergency department -We will check every 6 hour Tylenol levels x4 and watch for trend to drop below 20 and stay there consistently -Check serial liver function and INR -Normal on admission -Admit to ICU -Antiemetics and IV fluids for symptom management -Consult critical care medicine Suicide attempt -Patient is pink slipped -Once medically stable will need to be evaluated by crisis and admitted to psychiatric facility after discharge -Sounds as if patient's had significant depression -Patient had a baby girl on 10/10/2021 and states she has not felt herself since that point time History of genital herpes -Uses acyclovir as needed -Has been a significant amount of time since outbreak -Monitor and utilize acyclovir if needed Anxiety -Patient is not on any chronic medications for this Tobacco abuse -We will make nicotine patch available if needed -Recommend cessation DVT prophylaxis -Low risk -Recommend early ambulation CODE STATUS Full code Charges/Coding Visit Charges Inpatient E&M: 85792 Init Hosp L2
[2022-09-25 00:33] LABS: Partial Thromboplast Time 26.6 Seconds (24.1-36.2); Prothrombin Time (Protime)PT. 12.4 SECONDS (11.7-14.9)
[2022-09-25] MEDS: Ondansetron 4 MG/2 ML Vial IV (00:39)
[2022-09-25] MEDS: 0.9% Saline Lock 10 ML Syringe IV ×2 (01:17→01:21)
[2022-09-25] MEDS: proCHLORPERazine 10 MG/2 ML Vial 5 MG IV (01:21)
[2022-09-25 01:49] LABS: Albumin, Serum 3.4 g/dL (3.2-5.0); Protein, Total 7.1 g/dL (6.4-8.2)
[2022-09-25 01:50] LABS: AST(SGOT) 21 U/L (15-37); Alanine Aminotransfer ALT/SGPT 26 U/L (13-56); Alkaline Phosphatase 53 U/L (45-117); Bilirubin, Direct 0.08 mg/dL (0.00-0.30); Globulin 3.7 g/dL (2.2-4.2)
[2022-09-25 02:05] LABS: Acetaminophen (Tylenol) Level 186.1 ug/mL (10.0-30.0)
[2022-09-25 06:15] LABS: Absolute Lymphocyte Count 1.41 X10^3/uL (0.83-4.51); Absolute Neutrophil Count 4.1 X10^3/uL (2.0-7.7); Basophil# 0.03 X10^3/uL; Basophil% 0.5 % (0-1); Hemoglobin 13.6 g/dL (12.0-15.0); Lymphocyte # 1.41 X10^3/ul (0.83-4.51); Lymphocyte % 24.2 % (19-41); Mean Corpuscular Volume 88.3 fL (81-99); Mean Platelet Vol. 9.7 fl (6.2-12.0); Monocyte% 5.2 % (0-10); NRBC Flagged by Analyzer 0 % (0-5); Neutrophil # 4.06 X10^3/uL (2.7-7.7); Neutrophil % 69.8 % (47-70); Platelet Count 244 K/mm3 (150-450); RBC Distribution Width CV 11.8 % (11.6-14.6); RBC Distribution Width SD 37.9 fl (35.1-43.9); Red Blood Count 4.53 M/mm3 (4.2-5.4); White Blood Count 5.8 K/mm3 (4.4-11.0)
[2022-09-25 06:30] LABS: AST(SGOT) 22 U/L (15-37); Alanine Aminotransfer ALT/SGPT 26 U/L (13-56); Albumin, Serum 3.3 g/dL (3.2-5.0); Alkaline Phosphatase 46 U/L (45-117); Bilirubin, Direct 0.11 mg/dL (0.00-0.30); Globulin 3.5 g/dL (2.2-4.2); Phosphorus 3.6 mg/dL (2.5-4.9); Protein, Total 6.8 g/dL (6.4-8.2)
[2022-09-25 06:35] LABS: Anion Gap 7 (5-15); BUN 10 mg/dL (7-18); Calcium,Total 8.6 mg/dL (8.5-10.1); Chloride 103 mmol/L (98-107); Creatinine, Serum 0.71 mg/dL (0.55-1.02); EST Glomerular Filtration Rate 107 mL/min (>60); Est Glom Filt Rate - Afr Amer 130 mL/min (>60); Estimated Creatinine Clearance 92.99 ml/min; Glucose 137 mg/dL (74-106); Potassium 3.7 mmol/L (3.5-5.1); Sodium Level 134 mmol/L (136-145); Thyroid Stim Hormone (TSH) 1.19 uIU/mL (0.358-3.74)
[2022-09-25 06:40] LABS: Acetaminophen (Tylenol) Level 77.3 ug/mL (10.0-30.0)
--- NOTE | 2022-09-25 07:15 | PCM.HOSP.N ---
Hospitalist Note Patient is a 21-year-old female admitted in an apparent suicide attempt with acetaminophen. Admitted to the intensive care unit where patient is currently being managed Seen and examined, initial assessment including history and physical diagnostic data and management orders reviewed will follow
[2022-09-25 08:13] LABS: International Normalized Ratio 1.2; Prothrombin Time (Protime)PT. 14.8 SECONDS (11.7-14.9)
[2022-09-25 10:41] LABS: International Normalized Ratio 1.2; Prothrombin Time (Protime)PT. 14.4 SECONDS (11.7-14.9)
[2022-09-25 10:54] LABS: AST(SGOT) 23 U/L (15-37); Alanine Aminotransfer ALT/SGPT 28 U/L (13-56); Albumin, Serum 3.3 g/dL (3.2-5.0); Alkaline Phosphatase 47 U/L (45-117); Bilirubin, Direct 0.12 mg/dL (0.00-0.30); Globulin 3.5 g/dL (2.2-4.2); Protein, Total 6.8 g/dL (6.4-8.2)
[2022-09-25 13:14] LABS: Acetaminophen (Tylenol) Level 13.7 ug/mL (10.0-30.0)
[2022-09-25] MEDS: Prenatal Vits Tablet 1 TABLET PO (13:49)
[2022-09-25 14:19] LABS: International Normalized Ratio 1.1; Prothrombin Time (Protime)PT. 14.1 SECONDS (11.7-14.9)
[2022-09-25 14:25] LABS: AST(SGOT) 20 U/L (15-37); Alanine Aminotransfer ALT/SGPT 26 U/L (13-56); Albumin, Serum 3.3 g/dL (3.2-5.0); Alkaline Phosphatase 47 U/L (45-117); Bilirubin, Direct 0.09 mg/dL (0.00-0.30); Globulin 3.3 g/dL (2.2-4.2); Protein, Total 6.6 g/dL (6.4-8.2)
--- NOTE | 2022-09-25 17:15 | CON.PCM.CC_ITS ---
Assessment & Plan Assessment/Plan (1) Tylenol overdose: PLAN: Resolving well, with no significant sequelae. Liver functions peaked in the 20s and are decreasing. Good physical outcome is suggested by her rapid presentation in the ER and starting the Tylenol overdose protocol. - Complete the ordered acetaminophen overdose protocol (2) Suicide attempt: PLAN: Initial attempt, family history, impulsive and not premeditated but serious initial attempt. Patient states that she is no longer suicidal and regrets that she did that. - Urgent psychiatry evaluation - Recommend inpatient psychiatry transfer, treatment and counseling - The impulsiveness and unpredictability/nonpremeditated character of this velez icide attempt is of concern. - Social service consult is recommended. PLAN: Plan Patient is medically stable, critical care will sign off for now. Please call if further input is needed. The patient also vapes, and was recommended to discontinue it immediately. Nicotine replacement therapy is recommended to wean herself off vaping. Either nicotine cartridges or gum is recommended to substitute for each vaped nicotine dose Critical care time spent with patient at bedside, review of documentation, lab results, radiology and other test results, discussion with colleagues and ancillary staff, clinical management of patient, and updating family if applicable, was 30 minutes. [place] [address]91 HPI Consult Data Date of Consult: 09/25/22 HPI Narrative Reason for Consultation: Tylenol overdose HPI Narrative: ANDREA GARDNER, is a 21 F who presents with an initial, intentional suicide attempt with Tylenol overdose.. The patient stated she took Tylenol from a bottle that she had at home, with no premedication or plan, apparently in frustration after a fight with her . She stated that she is extremely concerned with being a good mother to her 1-year-old daughter. And it is unclear about the connection between that and her suicide attempt but it seems to be somehow related. She did not know how many pills she took but did not take the whole bottle. She came to the emergency room about an hour later. Immediately started the N acetylcysteine protocol, peak level was 258 around midnight, second level was 77, third was 13. She will continue to finish the protocol. There is no prior suicide attempt. Her mother did attempt suicide but apparently is very close to the patient and she states that she is supportive. Her mother had a history of abuse. the patient is currently in nursing school, and states she has several friends. She has no other drug use history admitted to except vaping nicotine. She does not smoke cigarettes. She denied marijuana use, smoking cigarettes, injection drug use, or pill abuse. Past medical history is negative She denies childhood illnesses or hospitalizations. [facility] Medical History Anxiety Genital herpes affecting Home Medications drospirenone 3 mg-ethinyl estradiol 0.02 mg tablet 1 tab PO DAILY prevention 09/25/22 [History Last Taken Unknown] Allergy/AdvReac Type Severity Reaction Status Date / Time No Known Allergies Allergy Verified 09/24/22 19:50 Family History no significant family his Surgical History no surgical history Social History (Updated 09/25/22 @ 00:[address] Georgia Monique DO) Smoking Status: Current every day smoker tobacco type: e-cigarettes alcohol intake: never substance use type: does not use Physical Exam Narrative Well-developed well-nourished no acute distress HEENT exam is unremarkable. Chest is clear bilaterally with no wheezes rales or rhonchi Heart normal S1-S2 with no murmurs rubs or gallops Abdomen is soft nontender Extremities have no clubbing cyanosis or edema Skin is warm and dry Neuro is nonfocal. Psych: Alert and oriented x3, articulate, slightly tearful when discussing her suicide attempt, mildly anxious. Her was present in the room at the time along with a sitter. Lab / Micro Data Attestation: I reviewed the patient's lab results. Result Diagrams: 09/25/22 05:55 09/25/22 05:55 Labs: Laboratory Results - last 24 hr 09/24/22 00:04: PT 12.4, INR 1.0, APTT 26.6 09/24/22 20:12: WBC 5.8, RBC 5.10, Hgb 15.5 H, Hct 45.0, MCV 88.2, MCH 30.4, MCHC 34.4, RDW Std Deviation 38.2, RDW Coeff of Soledad 11.8, Plt Count 278, MPV 9.5, Immature Gran % (Auto) 0.200, Neut % (Auto) 37.6 L, Lymph % (Auto) 52.7 H, [place] % (Auto) 8.1, Eos % (Auto) 0.9, Baso % (Auto) 0.5, Absolute Neuts (auto) 2.2, Absolute Lymphs (auto) 3.06, Nucleated RBC % 0 09/24/22 20:12: Sodium 137, Potassium 4.1, Chloride 104, Carbon Dioxide 26.0, Anion Gap 7, BUN 11, Creatinine 0.84, Estim Creat Clear Calc 78.60, Est GFR (MDRD) Af Amer 107, Est GFR (MDRD) Non-Af 88, BUN/Creatinine Ratio 13.0, Glucose 103, Calcium 9.6 09/24/22 20:12: Salicylates < 1.7 L, Acetaminophen 107.4 H*, Ethyl Alcohol < 3.0 09/24/22 20:12: Serum , Qual NEGATIVE 09/24/22 20:12: Total Bilirubin 0.30, Direct Bilirubin 0.09, AST 29, ALT 24, Alkaline Phosphatase 69, Total Protein 8.6 H, Albumin 4.2, Globulin 4.4 H 09/24/22 20:50: Urine Opiates Screen NEGATIVE, Urine Methadone Screen NEGATIVE, Ur Barbiturates Screen NEGATIVE, Ur Phencyclidine Scrn NEGATIVE, Ur Amphetamines Screen NEGATIVE, MDMA (Ecstasy) Screen NEGATIVE, U Benzodiazepines Scrn NEGATIVE, Urine Cocaine Screen NEGATIVE, U Cannabinoids Screen NEGATIVE, Ur Drug Screen Comment 09/24/22 23:06: Acetaminophen 258.6 H* 09/25/22 01:15: Acetaminophen 186.1 H* 09/25/22 01:15: PT 13.0, INR 1.0 09/25/22 01:15: Total Bilirubin 0.30, Direct Bilirubin 0.08, AST 21, ALT 26, Alkaline Phosphatase 53, Total Protein 7.1, Albumin 3.4, Globulin 3.7 09/25/22 05:55: Sodium 134 L, Potassium 3.7, Chloride 103, Carbon Dioxide 24.0, Anion Gap 7, BUN 10, Creatinine 0.71, Estim Creat Clear Calc 92.99, Est GFR (MDRD) Af Amer 130, Est GFR (MDRD) Non-Af 107, BUN/Creatinine Ratio 14.0, Glucose 137 H, Calcium 8.6, Magnesium 2.0, TSH 1.19 09/25/22 05:55: WBC 5.8, RBC 4.53, Hgb 13.6, Hct 40.0, MCV 88.3, MCH 30.0, MCHC 34.0, RDW Std Deviation 37.9, RDW Coeff of Soledad 11.8, Plt Count 244, MPV 9.7, Immature Gran % (Auto) 0.300, Neut % (Auto) 69.8, Lymph % (Auto) 24.2, [place] % (Auto) 5.2, Eos % (Auto) 0.0, Baso % (Auto) 0.5, Absolute Neuts (auto) 4.1, Absolute Lymphs (auto) 1.41, Nucleated RBC % 0 09/25/22 05:55: Phosphorus 3.6, Total Bilirubin 0.20, Direct Bilirubin 0.11, AST 22, ALT 26, Alkaline Phosphatase 46, Total Protein 6.8, Albumin 3.3, Globulin 3.5 09/25/22 05:55: PT 14.8, INR 1.2 09/25/22 05:55: Acetaminophen 77.3 H* 09/25/22 10:25: PT 14.4, INR 1.2 09/25/22 10:25: Total Bilirubin 0.30, Direct Bilirubin 0.12, AST 23, ALT 28, Alkaline Phosphatase 47, Total Protein 6.8, Albumin 3.3, Globulin 3.5 09/25/22 12:02: Acetaminophen 13.7 09/25/22 13:58: PT 14.1, INR 1.1 09/25/22 13:58: Total Bilirubin 0.20, Direct Bilirubin 0.09, AST 20, ALT 26, Alkaline Phosphatase 47, Total Protein 6.6, Albumin 3.3, Globulin 3.3 Micro: Microbiology 09/24/22 20:15 Nasal Secretion SARS-CoV-2 Antigen (Rapid) - Final Charges/Coding Procedures Hospitalists Procedures: [id number] Critial Care 1st Hr
[2022-09-25 18:24] LABS: AST(SGOT) 20 U/L (15-37); Alanine Aminotransfer ALT/SGPT 24 U/L (13-56); Albumin, Serum 3.3 g/dL (3.2-5.0); Alkaline Phosphatase 51 U/L (45-117); Bilirubin, Direct 0.07 mg/dL (0.00-0.30); Globulin 3.4 g/dL (2.2-4.2); Protein, Total 6.7 g/dL (6.4-8.2)
[2022-09-25 18:35] LABS: International Normalized Ratio 1.1; Prothrombin Time (Protime)PT. 13.9 SECONDS (11.7-14.9)
[2022-09-25 22:27] LABS: International Normalized Ratio 1.1; Prothrombin Time (Protime)PT. 13.8 SECONDS (11.7-14.9)
[2022-09-25 22:34] LABS: AST(SGOT) 18 U/L (15-37); Alanine Aminotransfer ALT/SGPT 25 U/L (13-56); Albumin, Serum 3.2 g/dL (3.2-5.0); Alkaline Phosphatase 50 U/L (45-117); Bilirubin, Direct 0.07 mg/dL (0.00-0.30); Globulin 3.4 g/dL (2.2-4.2); Protein, Total 6.6 g/dL (6.4-8.2)
[2022-09-26] VITALS (10 sets, daily range): BP systolic 102–119; BP diastolic 57–86; PULSE 55–83; RESP 11–22; TEMP 36.5–36.6; O2SAT 97–100
[2022-09-26] MEDS: 0.9% Saline Lock 10 ML Syringe IV (05:12)
[2022-09-26 05:21] LABS: Absolute Lymphocyte Count 2.87 X10^3/uL (0.83-4.51); Absolute Neutrophil Count 2.3 X10^3/uL (2.0-7.7); Basophil# 0.05 X10^3/uL; Basophil% 0.9 % (0-1); Eosinophil# 0.03 X10^3/uL; Eosinophils% 0.5 % (0-5); Hematocrit 39.5 % (37-47); Hemoglobin 13.2 g/dL (12.0-15.0); Lymphocyte # 2.87 X10^3/ul (0.83-4.51); Lymphocyte % 51.6 % (19-41); Mean Corp Hgb Conc 33.4 g/dL (32-36); Mean Corpuscular Hgb 29.7 pg (27.0-32.0); Mean Corpuscular Volume 88.8 fL (81-99); Mean Platelet Vol. 9.4 fl (6.2-12.0); Monocyte# 0.32 X10^3/uL; Monocyte% 5.8 % (0-10); NRBC Flagged by Analyzer 0 % (0-5); Neutrophil # 2.27 X10^3/uL (2.7-7.7); Neutrophil % 40.8 % (47-70); Platelet Count 225 K/mm3 (150-450); RBC Distribution Width CV 11.9 % (11.6-14.6); RBC Distribution Width SD 39.1 fl (35.1-43.9); Red Blood Count 4.45 M/mm3 (4.2-5.4); White Blood Count 5.6 K/mm3 (4.4-11.0)
[2022-09-26 05:41] LABS: AST(SGOT) 18 U/L (15-37); Alanine Aminotransfer ALT/SGPT 22 U/L (13-56); Albumin, Serum 3.4 g/dL (3.2-5.0); Alkaline Phosphatase 45 U/L (45-117); Anion Gap 5 (5-15); BUN 5 mg/dL (7-18); BUN/Creat Ratio 7.8 RATIO (10-20); Bilirubin, Direct 0.11 mg/dL (0.00-0.30); Calcium,Total 8.7 mg/dL (8.5-10.1); Chloride 107 mmol/L (98-107); Creatinine, Serum 0.64 mg/dL (0.55-1.02); EST Glomerular Filtration Rate 121 mL/min (>60); Est Glom Filt Rate - Afr Amer 146 mL/min (>60); Estimated Creatinine Clearance 103.16 ml/min; Glucose 92 mg/dL (74-106); Potassium 3.7 mmol/L (3.5-5.1); Protein, Total 6.4 g/dL (6.4-8.2); Sodium Level 137 mmol/L (136-145)
[2022-09-26 05:43] LABS: International Normalized Ratio 1.1; Prothrombin Time (Protime)PT. 13.9 SECONDS (11.7-14.9)
--- NOTE | 2022-09-26 07:12 | PCM.PN.HOSP ---
Reason for Visit Reason for Visit: Diagnoses Suicide attempt, initial encounter (09/25/22) Poisoning by 4-Aminophenol derivatives, accidental (unintentional), initial encounter (09/25/22) Objective Data Objective Data Vital Signs: Vital Signs Temp Pulse Resp BP Pulse Ox O2 Del Method 97.7 F L 62 22 H 112/66 100 Room Air 09/26/22 05:00 09/26/22 07:00 09/26/22 07:00 09/26/22 07:00 09/26/22 07:00 09/26/22 07:00 Oxygen Delivery Method Room Air Weight: 48.3 kg Body Mass Index (BMI) 20.0 Intake & Output: Intake and Output for Last 24 Hours 09/24/22 09/25/22 09/26/22 23:59 23:59 23:59 Intake Total 1910.05 / 1910.05 1025.05 / 1025.05 Output Total 1999 350 / 350 Balance -89.95 / -89.95 675.05 / 675.05 Lab / Micro Data Result Diagrams: 09/26/22 05:10 09/26/22 05:10 Labs: Laboratory Results - last 24 hr 09/25/22 05:55: PT 14.8, INR 1.2 09/25/22 10:25: PT 14.4, INR 1.2 09/25/22 10:25: Total Bilirubin 0.30, Direct Bilirubin 0.12, AST 23, ALT 28, Alkaline Phosphatase 47, Total Protein 6.8, Albumin 3.3, Globulin 3.5 09/25/22 12:02: Acetaminophen 13.7 09/25/22 13:58: PT 14.1, INR 1.1 09/25/22 13:58: Total Bilirubin 0.20, Direct Bilirubin 0.09, AST 20, ALT 26, Alkaline Phosphatase 47, Total Protein 6.6, Albumin 3.3, Globulin 3.3 09/25/22 17:53: PT 13.9, INR 1.1 09/25/22 17:53: Total Bilirubin 0.20, Direct Bilirubin 0.07, AST 20, ALT 24, Alkaline Phosphatase 51, Total Protein 6.7, Albumin 3.3, Globulin 3.4 09/25/22 17:53: Acetaminophen 2.0 L 09/25/22 22:00: PT 13.8, INR 1.1 09/25/22 22:00: Total Bilirubin 0.20, Direct Bilirubin 0.07, AST 18, ALT 25, Alkaline Phosphatase 50, Total Protein 6.6, Albumin 3.2, Globulin 3.4 09/26/22 05:10: WBC 5.6, RBC 4.45, Hgb 13.2, Hct 39.5, MCV 88.8, MCH 29.7, MCHC 33.4, RDW Std Deviation 39.1, RDW Coeff of Soledad 11.9, Plt Count 225, MPV 9.4, Immature Gran % (Auto) 0.400, Neut % (Auto) 40.8 L, Lymph % (Auto) 51.6 H, [place] % (Auto) 5.8, Eos % (Auto) 0.5, Baso % (Auto) 0.9, Absolute Neuts (auto) 2.3, Absolute Lymphs (auto) 2.87, Nucleated RBC % 0 09/26/22 05:10: PT 13.9, INR 1.1 09/26/22 05:10: Sodium 137, Potassium 3.7, Chloride 107, Carbon Dioxide 25.0, Anion Gap 5, BUN 5 L, Creatinine 0.64, Estim Creat Clear Calc 103.16, Est GFR (MDRD) Af Amer 146, Est GFR (MDRD) Non-Af 121, BUN/Creatinine Ratio 7.8 L, Glucose 92, Calcium 8.7, Total Bilirubin 0.30, Direct Bilirubin 0.11, AST 18, ALT 22, Alkaline Phosphatase 45, Total Protein 6.4, Albumin 3.4, Globulin 3.0 Micro: Microbiology 09/24/22 20:15 Nasal Secretion SARS-CoV-2 Antigen (Rapid) - Final
--- NOTE | 2022-09-26 09:11 | PCM.DC.SUM ---
Providers Date of Admission: 09/25/22 Date of Discharge: 09/26/22 Primary Care Physician: Lisa Sin, Consultations 09/25/22 00:49 Consult: [facility] / Pulmonary Medicine Routine Consulting Provider: Kayden Regalado Reason for Consult: Tylenol OD-Intentional EMERGENT Consult: No MD Notified: Yes Date Notified: 09/25/22 Time Notified: 00:25 Method of Notification: Text Reason For Visit: TYLENOL OD - INTENTIONAL Diagnosis Discharge Diagnosis (1) Tylenol overdose: Status: Acute Code(s): T39.1X1A - Poisoning by 4-Aminophenol derivatives, accidental (unintentional), initial encounter (2) Suicide attempt: Status: Acute Code(s): T14.91XA - Suicide attempt, initial encounter Medications at Discharge Home Medications drospirenone 3 mg-ethinyl estradiol 0.02 mg tablet 1 tab PO DAILY prevention 09/25/22 Hospital Course Summary of Care Provided Minutes Spent on Discharge: 35 Hospital Course: 21 F who presented to the emergency department after a suicide attempt. She took roughly a handful of Tylenol tablets at 7 PM after fight with her . Vitally stable and overall chemistry function unremarkable. Tylenol level 1 hour after ingestion 107.4 and 5 hours after 258.6 and she was started on N-acetylcysteine. LFTs peaked in the 20s and were decreasing. Finished her N-acetylcysteine. Spoke with mental health worker who reported that there was a good safety plan in place from her standpoint and pending my assessment felt that she could potentially be safe for discharge home with said safety plan. Evaluated patient and also spoke with her mother. Patient reports that she was unfaithful to her 2 weeks ago and told him 1 week ago, they had an argument on Monday and he left and she said that she took a handful of Tylenol and called her mother almost immediately. She said it sounds crazy but she knew she would not and is happy to be alive. Identified multiple things to live for including her child and her and does not feel hopeless. She does not have problems with substance use and has no significant medical problems. Discussed nursing school and she reports that she is not having any significant difficulties that contributed to this. Psychosocial stress outside of the argument with her seem proportional to her present life circumstances. Her has visited her multiple times and the plan is for them to stay together and he told her he forgives her. She denies any previous suicide attempts or harming herself and was not feeling depressed leading up to this nor having any suicidal ideation before or after. Mother at bedside said that she works from out and employer is willing to let her be flexible with her hours and that between patient's and herself she will be monitored 24 hours a day until deemed safe to no longer need to do so. She saw a therapist up until she got and plan is to call today to get set back up and mother reported she is willing to pay for the therapy as patient only stopped going due to concerns for future finances given that she was . Mother is comfortable with patient being discharged home and both she and patient expressed strong desire for home versus inpatient psychiatric placement. Patient reports if she ever has that thoughts again she would call her mother prior to harming herself and if she had any thoughts of hurting herself or even any fleeting feelings that then do not go away she would be willing to come back to the hospital. After discussing with patient and her mother discussed again with crisis and good safety plan in place. Do feel that given her good safety plan and lack of multiple significant risk factors feel that discharging home with family and outpatient follow-up would be better for her wellbeing and mental health in the long run then committing her to a psychiatric facility. Physical Exam Narrative General: Alert, oriented, no apparent distress HEENT: Atraumatic, normocephalic Eyes: Anicteric, normal conjunctiva, extraocular movements grossly intact Neck: Supple Respiratory: Clear to auscultation bilaterally, normal respiratory effort Cardiovascular: Regular rate and rhythm GI: Soft, nontender, nondistended Extremities: No edema Musculoskeletal: Moving all extremities Neuro: No overt focal neurological deficits Skin: No rashes appreciated Psych: Cooperative Weight / BMI Weight Weight: 48.3 kg Body Mass Index (BMI) 20.0 ABG / Lab / Microbiology Data Result Diagrams: 09/26/22 05:10 09/26/22 05:10 Laboratory: Laboratory Results - last 24 hr 09/25/22 10:25: PT 14.4, INR 1.2 09/25/22 10:25: Total Bilirubin 0.30, Direct Bilirubin 0.12, AST 23, ALT 28, Alkaline Phosphatase 47, Total Protein 6.8, Albumin 3.3, Globulin 3.5 09/25/22 12:02: Acetaminophen 13.7 09/25/22 13:58: PT 14.1, INR 1.1 09/25/22 13:58: Total Bilirubin 0.20, Direct Bilirubin 0.09, AST 20, ALT 26, Alkaline Phosphatase 47, Total Protein 6.6, Albumin 3.3, Globulin 3.3 09/25/22 17:53: PT 13.9, INR 1.1 09/25/22 17:53: Total Bilirubin 0.20, Direct Bilirubin 0.07, AST 20, ALT 24, Alkaline Phosphatase 51, Total Protein 6.7, Albumin 3.3, Globulin 3.4 09/25/22 17:53: Acetaminophen 2.0 L 09/25/22 22:00: PT 13.8, INR 1.1 09/25/22 22:00: Total Bilirubin 0.20, Direct Bilirubin 0.07, AST 18, ALT 25, Alkaline Phosphatase 50, Total Protein 6.6, Albumin 3.2, Globulin 3.4 09/26/22 05:10: WBC 5.6, RBC 4.45, Hgb 13.2, Hct 39.5, MCV 88.8, MCH 29.7, MCHC 33.4, RDW Std Deviation 39.1, RDW Coeff of Soledad 11.9, Plt Count 225, MPV 9.4, Immature Gran % (Auto) 0.400, Neut % (Auto) 40.8 L, Lymph % (Auto) 51.6 H, [place] % (Auto) 5.8, Eos % (Auto) 0.5, Baso % (Auto) 0.9, Absolute Neuts (auto) 2.3, Absolute Lymphs (auto) 2.87, Nucleated RBC % 0 09/26/22 05:10: PT 13.9, INR 1.1 09/26/22 05:10: Sodium 137, Potassium 3.7, Chloride 107, Carbon Dioxide 25.0, Anion Gap 5, BUN 5 L, Creatinine 0.64, Estim Creat Clear Calc 103.16, Est GFR (MDRD) Af Amer 146, Est GFR (MDRD) Non-Af 121, BUN/Creatinine Ratio 7.8 L, Glucose 92, Calcium 8.7, Total Bilirubin 0.30, Direct Bilirubin 0.11, AST 18, ALT 22, Alkaline Phosphatase 45, Total Protein 6.4, Albumin 3.4, Globulin 3.0 Microbiology: Microbiology 09/24/22 20:15 Nasal Secretion SARS-CoV-2 Antigen (Rapid) - Final D/C Instructions Discharge Diet: No restrictions Discharge Activity: Return to Normal Activity Meaningful Use Info Meaningful Use Diagnoses (Choose all that apply): None applicable Discharge Plan Admission Admit Date/Time: 09/25/22 00:17 Primary Reason for Your Visit: Tylenol overdose Attending Provider: Dayana Jordan Primary Care Provider: Lisa Sin Consulting Providers: Kayden Regalado ; Georgia Monique ; Sky Watson Instructions Additional Instructions / Restrictions: Please follow up with your primary care physician on discharge It will be important for you to schedule an appointment with your therapist, please call upon discharge to schedule Discharge Orders/Prescriptions Prescriptions: Continued drospirenone-ethinyl estradiol 3-0.02 mg tablet 1 tab PO DAILY Label Comments: take 1 tablet by mouth once daily Referrals / Follow Up: Lisa Sin, [Primary Care Provider] - Within 1 Week Disposition Disposition (needs filled in before D/C Order can be placed): Home, Self Care Charges/Coding Visit Charges Inpatient E&M: 72373 Disch Hosp >30min
--- NOTE | 2022-09-26 10:45 | CASEMGMT ---
RN?CM?DIVISION CHAIR?CM?to room to meet with patient for initial transition planning/care coordination?assessment.?RN?CM?introduced self and role at [facility].? Pt voices understanding and consents to?assessment?at this time.? Pt sitting up in bed in no distress at this time.?Pt's mother, Irasema, @ bedside and pt agreeable to her being present during assessment. Pt is A/O at this time and answers all questions appropriately.?? Care providers, pharmacy, and demographics verified/updated at this time. PCP: Bindu Sin Specialists: Counselor, Candace Haque. Pt has called her to schedule an appt and is awaiting a call back at this time. [facility] Insurance: [employer] CHARLES Prescription Benefit:?Yes LNOK: , [place]. Mother, Irasema. Living Arrangements:Lives w/ and 1-yr-old child. Indep. Transportation:?Pt states drives self and states no transportation concerns at this time.? DME: ? Denies using any DME and denies needs.? HHC/SNF: No history. Pt wishes to return home and states has no concerns with going home at time of discharge.? Both pt and mother feel comfortable with the safety plan that has been made with crisis and feel pt is safe to discharge home. Pt is also awaiting a call back from her counselor to get an appt scheduled. PLAN:??Home w/safety plan in place and family support. Alicia JOHNSONN?RN?CM
--- NOTE | 2022-09-26 11:13 | DCINST_ITS ---
Discharge Instructions Diet Discharge Diet: No restrictions Activity Discharge Activity: Return to Normal Activity Follow Up Care Test Results: Test results from this visit will be discussed in further detail at your follow- up appointment, if applicable. Discharge Plan Admission Admit Date/Time: 09/25/22 00:17 Primary Reason for Your Visit: Tylenol overdose Attending Provider: Dayana Jordan Primary Care Provider: Lisa Sin Consulting Providers: Kayden Regalado ; Georgia Monique ; Sky Watson Instructions Additional Instructions / Restrictions: Please follow up with your primary care physician on discharge It will be important for you to schedule an appointment with your therapist, please call upon discharge to schedule Discharge Orders/Prescriptions Prescriptions: Continued drospirenone-ethinyl estradiol 3-0.02 mg tablet 1 tab PO DAILY Label Comments: take 1 tablet by mouth once daily Referrals / Follow Up: Lisa Sin, [Primary Care Provider] - Within 1 Week Disposition Disposition (needs filled in before D/C Order can be placed): Home, Self Care
== END 2022-09-26 13:10 | disposition home or self-care (01) | DRG 918 ==
LOC: ED 23:55 → ICU 09-25 01:20
PROVIDERS: Internal Medicine; Admitting Provider Internal Medicine; Emergency Provider Emergency Medicine; PCP Family Medicine; Visit Provider Internal Medicine
DX: T39.1X2A Poisoning by 4-Aminophenol derivatives, intentional self-harm, initial encounter (principal); F17.290 Nicotine dependence, other tobacco product, uncomplicated
CPT/HCPCS: 80048; 80076; 80307; 80329; 82077; 83735; 84100; 84443; 84703; 85025; 85610; 85730; 87811; 96365; 96366; 96375; 99221; 99285; A4216; G0378; G0480; J2405

== ENCOUNTER → 2023-11-03 | Outpatient (CLI) | payer OTHER, BC, SELFPAY ==
[2023-11-03 11:26] LABS: AST(SGOT) 23 U/L (15-37); Alanine Aminotransfer ALT/SGPT 15 U/L (13-56); Cholesterol 182 mg/dL (200); High Density Lipoprotein 62 mg/dL; Triglycerides 165 mg/dL; Very Low Density Lipoprotein 33 mg/dL (5-40)
== END | disposition home or self-care (01) ==
LOC: MTLAB 08:29
PROVIDERS: PCP Registered Nurse; Referring Provider Dermatology; Visit Provider Dermatology
DX: L70.0 Acne vulgaris (principal); L20.89 Other atopic dermatitis; Z79.899 Other long term (current) drug therapy
CPT/HCPCS: 36415; 80061; 84450; 84460

== ENCOUNTER 2024-09-25 07:20 | Inpatient (IN) | payer OTHER, BC, SELFPAY ==
[2024-09-25] VITALS (60 sets, daily range): BP systolic 95–156; BP diastolic 52–87; PULSE 70–120; RESP 14–16; TEMP 36.8–37.4; O2SAT 90–100; BMI 25.9
--- NOTE | 2024-09-25 07:40 | HP.PCM.OB_ITS ---
HPI - General General Date of Admission: 09/25/24 HPI Narrative ANDREA RUEDA, is a 23 F at 39.2 weeks gestation who presents for elective induction of labor. Maternal Data Information SHANE Calculator Estimated Delivery Date Method Current WG Current Estimate 09/30/24 Manual 39w 2d PFSH [facility] Medical History (Updated 09/25/24 @ 07:43 by Marcela Tony CNM) Suicide attempt Tylenol overdose Anxiety Genital herpes affecting Home Medications ?Medication ?Instructions ?Recorded ?Last Taken ?Type drospirenone 3 mg-ethinyl 1 tab PO DAILY pre vention 09/25/22 Unknown History estradiol 0.02 mg tablet Allergy/AdvReac Type Severity Reaction Status Date / Time No Known Allergies Allergy Verified 09/24/22 19:50 Social History (Updated 09/25/22 @ 00:[address] [place] Monique, DO) Smoking Status: Current every day smoker tobacco type: e-cigarettes alcohol intake: never substance use type: does not use History 1 Elective abortions Hx Para 1 Spontaneous abortions Hx # Term Pregnancies Ectopic pregnancies Hx # Pregnancies Multiple births # of living children 1 ROS Eyes Eyes: Denies blurry vision, change in vision or spots in vision ENT HEENT: Denies dizziness or headache(s) Cardiovascular Cardiovascular: Denies abdominal pain, chest pain or dyspnea Respiratory/Chest Respiratory/Chest: Denies cough, dyspnea, shortness of breath at rest or shortness of breath with exertion Gastrointestinal Gastrointestinal: Denies abdominal pain, diarrhea or vomiting Genitourinary Genitourinary: Denies change in urinary stream, difficulty urinating or dysuria Musculoskeletal Musculoskeletal: Reports none Integumentary Integumentary: Denies rash Neurologic Neurologic: Denies dizziness, headache(s), memory loss or weakness Psychiatric Psychiatric: Reports none Vital Signs Vital Signs Vital Signs: Weight Weight: 137 lb Body Mass Index (BMI) 25.9 Physical Exam Const alert, oriented x3 and no apparent distress General Appearance: cooperative Orientation / Consciousness: awake Exam Limitations: no limitations HEENT normocephalic Head and Scalp: normal to inspection Eyes General Eye: normal appearance of both eyes Neck full ROM and no lymphadenopathy Lymph Lymphatic: no lymphadenopathy noted Chest inspection of chest normal Resp normal respiratory effort, normal air movement and clear to auscultation bilaterally Effort and Inspection: able to speak in complete sentences and symmetric chest movement Cardio regular rate and regular rhythm GI normal to inspection, nondistended, normoactive bowel sounds Manual OB Exam: presentation cephalic Back/Spine normal ROM Extremity full ROM and no calf tenderness Skin no rashes or lesions noted General Skin Exam: no breakdown Neuro oriented x3 and CN's II-XII intact bilaterally Psych mental status grossly normal and thought process normal Labs Labs Labs: Blood Type AB NEGATIVE Antibody Screen NEGATIVE Hct 39.5 % (37-47) Hgb 13.2 g/dL (12.0-15.0) Rhogam given: No Assessment & Plan (1) Rh negative status during : (2) History of herpes genitalis: (3) Suicide attempt: (4) Anxiety and depression: (5) History of depression, currently : (6) Positive GBS test: (7) 39 weeks gestation of : (8) Encounter for elective induction of labor: PLAN: Plan Admit to labor and delivery Routine labs Start IV and run per orders GBS positive- start PCN protocol Start Pitocin at 2 mu/min and increase per orders Epidural when indicated Dr. Nguyen notified of admission and is collaborating physicain
[2024-09-25] MEDS: Lactated Ringers 1,000 ML 200 ML IV ×2 (07:55→11:44)
[2024-09-25] MEDS: Penicillin G Pot 5,000,000 UNITS in 0.9% Normal Saline (100mL MB+) 100 ML 150 UNITS IV (08:01)
[2024-09-25 08:10] LABS: Absolute Lymphocyte Count 1.79 X10^3/uL (0.83-4.51); Absolute Neutrophil Count 5.7 X10^3/uL (2.0-7.7); Basophil# 0.03 X10^3/uL; Basophil% 0.4 % (0-1); Eosinophil# 0.03 X10^3/uL; Eosinophils% 0.4 % (0-5); Hematocrit 33.9 % (37-47); Hemoglobin 11.6 g/dL (12.0-15.0); Lymphocyte # 1.79 X10^3/ul (0.83-4.51); Lymphocyte % 22.3 % (19-41); Mean Corp Hgb Conc 34.2 g/dL (32-36); Mean Corpuscular Hgb 29.6 pg (27.0-32.0); Mean Corpuscular Volume 86.5 fL (81-99); Mean Platelet Vol. 10.5 fl (6.2-12.0); NRBC Flagged by Analyzer 0 % (0-5); Platelet Count 201 K/mm3 (150-450); RBC Distribution Width CV 12.8 % (11.6-14.6); RBC Distribution Width SD 39.7 fl (35.1-43.9); Red Blood Count 3.92 M/mm3 (4.2-5.4)
[2024-09-25] MEDS: Oxytocin 15 Units/NS 250ml 15 UNITS/250 ML IV.SOLN 2 UNITS IV (08:10)
[2024-09-25] MEDS: fentaNYL-bupivacaine (epidural) 100 ML BAG EPIDURAL (11:45)
[2024-09-25] MEDS: Penicillin G 3,000,000 Units 50 ML 100 UNITS IV (11:57)
[2024-09-25 12:11] LABS: Syphilis Antibodies Nonreactive (Nonreactive)
--- NOTE | 2024-09-25 12:35 | PCM.PN.CNM ---
Subjective Subjective Patient is comfortable with epidural. Objective Data Objective Data Vital Signs: Vital Signs Temp Pulse Resp BP Pulse Ox 98.8 F 93 16 113/69 100 09/25/24 11:56 09/25/24 12:28 09/25/24 11:06 09/25/24 12:28 09/25/24 12:12 Weight: 137 lb Body Mass Index (BMI) 25.9 Intake & Output: Intake and Output for Last 24 Hours 09/23/24 09/24/24 09/25/24 23:59 23:59 23:59 Intake Total 1056.60 / 1056.60 Balance 1056.60 / 1056.60 Lab / Micro Data 09/25/24 07:55 Labs: Laboratory Results - last 24 hr 09/25/24 07:55: WBC 8.0, RBC 3.92 L, Hgb 11.6 L, Hct 33.9 L, MCV 86.5, MCH 29.6, MCHC 34.2, RDW Std Deviation 39.7, RDW Coeff of Soledad 12.8, Plt Count 201, MPV 10.5, Immature Gran % (Auto) 0.900, Neut % (Auto) 71.0 H, Lymph % (Auto) 22.3, [place] % (Auto) 5.0, Eos % (Auto) 0.4, Baso % (Auto) 0.4, Absolute Neuts (auto) 5.7, Absolute Lymphs (auto) 1.79, Nucleated RBC % 0, Syphilis Total Ab Nonreactive, Blood Type AB NEGATIVE, Antibody Screen NEGATIVE Assessment & Plan (1) Encounter for elective induction of labor: (2) 39 weeks gestation of : (3) Positive GBS test: (4) History of depression, currently : (5) Anxiety and depression: (6) Rh negative status during : PLAN: Plan CE /-2 AROM for scant amount of clear fluid Cat. 1 tracing Pitocin at 6 mu/min- continue to increase per policy GBS + adequately treated with PCN IV Anticipate
[2024-09-25] MEDS: 0.9% Normal Saline 100 ML IV.SOLN. INTRA-UTER (13:48)
--- NOTE | 2024-09-25 14:41 | OB.VAGDELI_ITS ---
Assessment & Plan (1) Rh negative status during : (2) Anxiety and depression: (3) Positive GBS test: (4) Encounter for elective induction of labor: (5) Care and examination of lactating mother: Maternal Data Information SHANE Calculator Estimated Delivery Date Method Current WG Current Estimate 09/30/24 Manual 39w 2d Vaginal Delivery Maternal Presentation Maternal Presentation: Elective Induction Type of Induction: Pitocin and Amniotomy Vaginal Delivery Information Procedure Performed: Spontaneous Vaginal Delivery Date of Procedure: 09/25/24 Pre-Procedure Diagnosis: Term gestation, elective induction of labor Post-Procedure Diagnosis: , Live female infant Type of anesthesia: Epidural Estimated Blood Loss: 250 Time of Delivery: 14:29 Findings Description of procedure: Called from office to bedside for continued variables with contractions. CE - complete dilation. With good maternal effort, head delivered followed by anterior shoulder and remainder of infant body without any force, delay, or traction. Vigorous female was delivered atraumatically and placed on maternal abdomen. Pitocin IV started for active management of the third stage of labor. 3 vessel cord clamped and cut after delay and infant placed immediately skin to skin with patient. Cord blood collected. Placenta delivered spontaneously and intact. After inspection, vagina and perineum are intact. Vaginal sweep performed. Fundus is firm 3 below U and bleeding is hemostatic. Sponge and sharps counts correct. Patient and infant bonding well at this time. Dr. Corbett notified of delivery. Routine post orders placed. 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
[2024-09-25] MEDS: Oxytocin 15 Units/NS 250ml 15 UNITS/250 ML IV.SOLN 83 UNITS IV (15:36)
[2024-09-25] MEDS: Ibuprofen 600 MG Tablet PO (18:06)
[2024-09-25] MEDS: Acetaminophen 500 MG Tablet 1000 MG PO (20:52)
[2024-09-26] VITALS (8 sets, daily range): BP systolic 110–121; BP diastolic 61–69; PULSE 76–99; RESP 16; TEMP 36.1–36.8; O2SAT 97–100
[2024-09-26] MEDS: Ibuprofen 600 MG Tablet PO ×2 (04:45→10:47)
--- NOTE | 2024-09-26 06:21 | DS.PCM_ITS ---
Providers Date of Admission: 09/25/24 Primary Care Physician: ALENA ArmentaC Reason For Visit: VAGINAL DELIVERY Diagnosis Discharge Diagnosis (1) Rh negative status during : Status: Acute Code(s): O26.899 - Other specified related conditions, unspecified trimester; Z67.91 - Unspecified blood type, Rh negative (2) Anxiety and depression: Status: Acute Code(s): F41.9 - Anxiety disorder, unspecified; F32.A - Depression, unspecified (3) Positive GBS test: Status: Acute Code(s): B95.1 - Streptococcus, group B, as the cause of diseases classified elsewhere (4) Encounter for elective induction of labor: Status: Acute Code(s): Z34.90 - Encounter for supervision of normal , unspecified, unspecified trimester (5) Care and examination of lactating mother: Status: Acute Code(s): Z39.1 - Encounter for care and examination of lactating mother Plan PPD 1 support Pain controlled Rx for Celexa 10 mg PO sent for patient- has appointment with counselor but would like medication available if needs to start before appointment Reports already feeling less anxiety and depression D/C home with follow up in office Medications at Discharge Home Medications 81-iron 27 mg-folic 1 mg-omega3 430 mg tablet,capsule,del.rel 1 ea PO DAILY 09/25/24 acetaminophen 500 mg tablet 1,000 mg (2 x 500 mg) PO Q6H PRN PRN Pain 1-10 Or Fever #0 tabs 09/26/24 citalopram 10 mg tablet 10 mg PO DAILY #30 tabs 09/26/24 ibuprofen 600 mg tablet 600 mg PO Q6H PRN PRN Pain Score 1-10 #0 tabs 09/26/24 Hospital Course Operations None Procedures None Summary of Care Provided Minutes Spent on Discharge: 15 Hospital Course: Patient had vaginal delivery. Hospital course was uneventful. Physical Exam Narrative Patient seen at bedside. Denies pain. Ambulating and voiding without difficulty. Lochia decreased. Desires discharge home today. Const alert and oriented x3 General Appearance: Negative for in distress HEENT normocephalic Eyes General Eye: normal appearance of both eyes Neck General: normal visual inspection Chest Chest: symmetrical chest wall rise Resp normal respiratory effort and normal air movement Effort and Inspection: symmetric chest movement; Negative for tachypneic Auscultation: clear to auscultation bilaterally Cardio regular rate and regular rhythm Peripheral Pulses: pulses 2+ throughout GI normal to inspection, nondistended, normoactive bowel sounds Narrative: Ice to perineum OB / External & Speculum: vaginal bleeding and other Lochia decreasing Uterus Palpation: uterus fundus firm (Below U) Extremity normal to inspection, full ROM and normal capillary refill Skin no rashes or lesions noted Neuro oriented x3, CN's II-XII intact bilaterally and gait normal Psych mental status grossly normal, thought process normal and activity/motor behavior normal Weight / BMI Weight Weight: 137 lb Body Mass Index (BMI) 25.9 ABG / Lab / Microbiology Data 09/25/24 07:55 Laboratory: Laboratory Results - last 24 hr 09/25/24 07:55: WBC 8.0, RBC 3.92 L, Hgb 11.6 L, Hct 33.9 L, MCV 86.5, MCH 29.6, MCHC 34.2, RDW Std Deviation 39.7, RDW Coeff of [place] 12.8, Plt Count 201, MPV 10.5, Immature Gran % (Auto) 0.900, Neut % (Auto) 71.0 H, Lymph % (Auto) 22.3, [place] % (Auto) 5.0, Eos % (Auto) 0.4, Baso % (Auto) 0.4, Absolute Neuts (auto) 5.7, Absolute Lymphs (auto) 1.79, Nucleated RBC % 0, Syphilis Total Ab Nonreactive, Blood Type AB NEGATIVE, Antibody Screen NEGATIVE D/C Instructions Discharge Diet: No restrictions Discharge Activity: Return to Normal Activity, No Restrictions, May Drive, May Shower and May Take a Tub Bath (Warm water only. No bath salts, soaps, bubbles) May resume sexual activity in: 6-8 weeks Weight Bearing Status: Weight bearing as tolerated Call your doctor if you observe: Fever of 101 or Higher, Inability to urinate, Using more than 1 pad per hour, Shortness of breath, Dizziness, Chest pain, Calf discomfort and Uncontrolled pain DC O2, CPAP, BIPAP Needs Home O2 Discharge instructions: No Please Follow Up With: [facility] Sudhakar GUZMAN When: 2 weeks in office or virtual Meaningful Use Info Meaningful Use Meaningful Use Diagnoses (Choose all that apply): None applicable Ischemic Stroke Statin Dosing Therapy Reference: STATIN DOSE THERAPY REFERENCE: * Patients > 75 years receive moderate or high dose statin therapy. * Patients 75 years or YOUNGER should receive HIGH intensity statin dose unless contraindicated. You will be required to document reason for non-treatment if statin daily dose does not meet guidelines. HIGH DOSE STATIN THERAPY DAILY Atorvastatin > than or = to 40 mg Rosuvastatin > than or = to 20 mg Amlodipine + Atorvastatin > than or = to 2.5/40 mg Ezetimibe + Simvastatin 10/80 mg Simvastatin 80mg Discharge Plan Admission Admit Date/Time: 09/25/24 07:20 Primary Reason for Your Visit: Labor and Delivery Attending Provider: Marcela Tony Primary Care Provider: Felicia Whitfield NP Discharge Orders/Prescriptions Prescriptions: New citalopram 10 mg Tablet 10 mg PO DAILY Qty: 30 0RF acetaminophen 500 mg Tablet 1,000 mg PO Q6H PRN PRN (Reason: Pain 1-10 Or Fever) Qty: 0 0RF ibuprofen 600 mg Tablet 600 mg PO Q6H PRN PRN (Reason: Pain Score 1-10) Qty: 0 0RF Continued PNV 81-sod iron edta,ps-FA-om3 27-1-430 mg combo pack,tablet and cap,DR 1 ea PO DAILY Discontinued acyclovir 400 mg tablet 400 mg PO TID aspirin 81 mg tablet,delayed release (DR/EC) 81 mg PO DAILY Referrals / Follow Up: Marcela Tony CNM [Med Staff - [facility] Practice Prof] - Felicia Whitfield NP, WR[facility]URNER-C [Primary Care Provider] - Disposition Disposition (needs filled in before D/C Order can be placed): Home, Self Care
[2024-09-26] MEDS: Citalopram 10 MG Tablet PO (10:47)
--- NOTE | 2024-10-01 09:14 | CASEMGMT ---
Social Work Assessment Labor and Delivery Unit Patient Address:[address] [place] [address] [place] [address] Phone number: [phone] Date of Referral: 09/25/24 Time of Referral:? 1720 Referred By: Marcela Tony Date of Intervention: ??09/27/24 Time of Intervention:? 1050 Reason for Referral:? attempted overdose on Tylenol in 2022/ PPD, Pt not on meds now, did see a counselor Sw completed chart review and recognizes social work consult due to social concerns. Sw presented to bedside and introduced self to mother of baby (VIANNEY- Ange) and father of baby (FOMckinley- Marck). Sw explained reason for sw involvement and completed psychosocial assessment. History obtained from: medical records, MOB and FOB. Household composition: Currently residing in the home is WIN FAITH, their almost three year old daughter, Rere and baby when ready for discharge. Parents deny problems with housing, reporting it to be safe and secure. Patient's parent/guardian status:? ?Parents state that they have known each other since high school and have been together since that time. They are and this is their second child together. No reports of domestic violence or intimate partner violence. Medical History: ?VIANNEY is 23 year old female who is 2, para 1- now 2 following labor and delivery of . VIANNEY received routine care during with [facility]. VIANNEY presented to hospital for an elective induction of labor at 39 weeks gestation. Baby was born on 09/25/24 via vaginal delivery. Baby girl, named Grace Bender, was born weighing 5lb 15oz and had apgars of 8 and 9 at one and five minutes of life, respectfully. VIANNEY reports that she is breast feeding and it is going well, and baby will be followed by Dr. Lopez for pediatrics. Educational Status:? Both parents graduated from high school, and VIANNEY obtained her Bachelor's degree. NO problems with reading, learning or comprehension. Financial Status: Both parents are gainfully employed outside of the home. 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 Infant Supplies: All necessary baby supplies obtained, including: car seat, safe sleep space, clothes, diapers and wipes. Childcare/Caregiver(s):? MOB will be the primary caregiver to baby, along with FOB when he is not at work. When both parents are working maternal grandma will help with childcare needs. Transportation:?? Both parents have their drivers license and reliable means of transportation. No barriers at this time. Programs/Agencies Involved: ???Parents are not connected to any community resources that assist them financially as they are over income. Children Services/Legal Issues:???MOB reports that they have never been involved with children's services. No issues or concerns warranting referral to be made at this time. Behavioral Health Issues: ??Mental Health History: FOB states that when he was younger he struggled with tourettes syndrome, however he does not any more. He was also diagnosed with ADHD. FOB denies medications prescribed. MOB states that she has been diagnosed with anxiety, depression and did experience depression after her first daughter was born. MOB states that she is not prescribed any medications to help her manage her symptoms at this time. MOB disclosed that when she was struggling with her depression there was a situation where she took too much Tylenol. MOB states that she regretted it as soon as it happened. Patient states when she took tylenol, she took 20 500mg pills because she was feeling overwhelmed. MOB was 1 year at that time. MOB states that prior to that she had had thoughts of hurting herself, but never acted on them. MOB states that following that incident she stayed in contact with counseling and went as scheduled. MOB states that she has not had thoughts or desires since that time. 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 MOB states that she loves her 3 year old daughter and is extremely happy to now include to their family. FOB was present at this time and states that MOB and family are not in the same place they were when they had their first baby. Parents report to feeling more stable with their lives (housing, jobs, financial) and are not overwhelmed taking a baby home. ??? Substance Use History:?Parents deny substance use prior to and during . Family History:?Parents deny family history of substance use or significant mental health diagnoses. ? Drug Screens: No drug screens observed while completing chart review. Family/Social Stressors:?Parents deny any problems, concerns or stressors at this time. Support Systems: MOB identifies that FOMckinley and her mom are her biggest supports. Depression/Shaken Baby/Safe Sleeping: Alcira educated parents on signs and symptoms of baby blues and depression and anxiety to be mindful of. Parents state that they have been mindful of how MOB has been feeling ever since they discovered that she was . MOB states that at this time she feels happy, content and blessed. MOB states that she feels comfortable talking to her supports if she were to start to feel any symptoms of baby blues or depression. MOB states that she was previously seeing Candace Haque for counseling. MOB reports that she has not felt the need to see her over the past year or so. MOB states that if she were to feel as though she is struggling at any point during this period she would get connected to a mental health service provider. Alcira educated parents on shaken baby prevention and ABCs of safe sleep. Parents express understanding. ASSESSMENT:? MOB and baby admitted following labor and delivery of . MOB and FOB with mental health history. MOB has significant mental health history that also includes an attempt to harm herself in 2022 by overdosing on Tylenol. MOB states that she got connected to appropriate supports at that time and even though she is no longer seeing them on a regular basis, she feels comfortable getting established if she felt the need. MOB states that she also has family and friends that she knows she can talk to. Parents understanding of importance of recognizing symptoms of depression and acting on them within appropriate timing to ensure MOB gets the help that she needs before anything happens. MOB states that she has not had thoughts of hurting herself in two years. Parents both state that they are in a more secure place now than they were when they had their first baby and are eager to be home. Parents have all necessary baby supplies and natural supports in place. MOB was observed sitting in bed comfortably holding baby and kissing her head and stroking her face from time to time. MOB reports to having a lozano/ connection with baby. FOMckinley also states that he feels comfortable caring for baby. PLAN:?? No other services requested or indicated. MOB and baby to be discharged when medically ready. Parents were provided literature regarding: signs and symptoms of baby blues and mood and anxiety disorders, Help Me Grow, shaken baby prevention, ABCs of safe sleep and a list of [facility] resources that are available for them should any needs present themselves. Reji Huber, INVESTIGATOR VICE, [employer] MACHINE OPERATOR
--- NOTE | 2024-10-01 10:09 | NURSING ---
follow up phone call made, no answer, left voicemail
== END 2024-09-26 17:00 | disposition home or self-care (01) | DRG 807 ==
PROVIDERS: Admitting Provider Advanced Practice Midwife; PCP Registered Nurse; Visit Provider Advanced Practice Midwife
DX: O98.82 Other maternal infectious and parasitic diseases complicating childbirth (principal); Z37.0 Single live birth; O99.344 Other mental disorders complicating childbirth; B95.1 Streptococcus, group B, as the cause of diseases classified elsewhere; F32.A Depression, unspecified; F41.9 Anxiety disorder, unspecified; F17.290 Nicotine dependence, other tobacco product, uncomplicated; Z3A.39 39 weeks gestation of pregnancy; Z67.91 Unspecified blood type, Rh negative; Z86.19 Personal history of other infectious and parasitic diseases; O99.334 Smoking (tobacco) complicating childbirth; Z91.51 Personal history of suicidal behavior
CPT/HCPCS: 59025; 59050; 85025; 86780; 86850; 86900; 86901; 99221; G0378